=== PATIENT | male | born 1930 | race Caucasian/White ===

== ENCOUNTER 2018-11-18 05:35 | Emergency (ER) | payer MEDICARE ==
[~2018-11-18] VITALS: Ht 175.3 cm; Wt 76.8 kg
[~2018-11-18 05:35] MED LIST: ASPI81TA52 PO; COR3.125T PO; PANT40TA39 PO; POTA10TA15 PO; Prednisone PO; ROPI0.2534 PO; SIMV20TA5 PO; ZOLP5TAB8 PO
[2018-11-18] MEDS ORDERED: LEVOTHYROXINE PO (05:58)
[2018-11-18] MEDS ORDERED: AMIO200T61 PO (05:58)
[2018-11-18 07:42] LABS: BASOPHILS % (AUTO) 0.3 % (0-1); EOSINOPHILS % (AUTO) 0.2 % (0-6); HEMATOCRIT 40.5 % (42.0-52.0); HEMOGLOBIN 13.8 g/dl (14.0-17.9); LYMPHOCYTES # (AUTO) 0.7 X10'3 (1.1-4.8); LYMPHOCYTES % (AUTO) 7.3 % (21-51); MEAN CORPUSCULAR HEMOGLOBIN 33.3 PG (27.0-31.0); MEAN CORPUSCULAR HGB CONC 34.2 g/dL (33.0-36.5); MEAN CORPUSCULAR VOLUME 97.4 FL (78-98); MEAN PLATELET VOLUME 7.9 FL (7.4-10.4); MONOCYTES % (AUTO) 10.7 % (2-12); NEUTROPHILS # (AUTO) 7.5 X10'3 (1.8-7.7); NEUTROPHILS % (AUTO) 81.5 % (42-75); PLATELET COUNT 123 X10'3 (140-440); RED BLOOD COUNT 4.15 X10'6 (4.70-6.10); RED CELL DISTRIBUTION WIDTH 13.3 % (11.5-14.5); WHITE BLOOD COUNT 9.2 X10'3 (4.5-11.0)
[2018-11-18 07:56] LABS: ALANINE AMINOTRANSFERASE 22 U/L (12-78); ALBUMIN 3.6 G/DL (3.4-5.0); ALBUMIN/GLOBULIN RATIO 0.8 (1.1-1.5); ALKALINE PHOSPHATASE 58 IU/L (46-116); ANION GAP 8 (8-16); ASPARTATE AMINO TRANSFERASE 27 U/L (10-37); BILIRUBIN,TOTAL 0.9 MG/DL (0.1-1.0); BLOOD UREA NITROGEN 20 MG/DL (7-18); BUN/CREATININE RATIO 13.7 (5.4-32.0); CALCIUM 9.1 MG/DL (8.5-10.1); CHLORIDE 99 MMOL/L (99-107); CREATININE 1.46 MG/DL (0.60-1.10); GLUCOSE 115 MG/DL (70-104); POTASSIUM 4.4 MMOL/L (3.5-5.1); SODIUM 133 MMOL/L (135-145); TOTAL CARBON DIOXIDE 26.2 MMOL/L (24-32); TOTAL PROTEIN 7.9 G/DL (6.4-8.2); eGFR 45 ML/MIN
[2018-11-18 08:45] LABS: CLARITY,URINE CLEAR (Clear); COLOR,URINE YELLOW (Yellow); GLUCOSE, URINE NEGATIVE (Neg); KETONES,URINE NEGATIVE (Neg); LEUKOCYTE ESTERASE ,URINE NEGATIVE (Neg); NITRITES, URINE NEGATIVE (Neg); OCCULT BLOOD,URINE TRACE-INTACT (Neg); PH,URINE 7.5 (4.8-8.0); PROTEIN,URINE TRACE mg/dl (Neg)
[2018-11-18 08:47] LABS: UA COLLECTION TYPE CLN CATCH MIDSTREAM
[2018-11-18 08:50] LABS: BACTERIA,URINE NONE SEEN /HPF (Neg); MUCUS STRANDS NONE SEEN /LPF (Neg); SQUAMOUS EPITHELIAL CELL,UR NONE SEEN /LPF (FEW); WBC,URINE NONE SEEN /HPF (0-4)
[2018-11-18] MEDS ORDERED: gabapentin 100mg capsule PO ONE (09:05)
[2018-11-18 09:44] VITALS: BP 141/70
[2018-11-19] MEDS ORDERED: LORA0.5T PO (05:31)
== END 2018-11-18 09:45 | disposition home or self-care (01) ==
LOC: ER 05:36
DX: G25.81 Restless legs syndrome (principal); I25.10 Atherosclerotic heart disease of native coronary artery without angina pectoris; I11.0 Hypertensive heart disease with heart failure; I50.9 Heart failure, unspecified; K21.9 Gastro-esophageal reflux disease without esophagitis; Z95.1 Presence of aortocoronary bypass graft; Z95.0 Presence of cardiac pacemaker; Z90.49 Acquired absence of other specified parts of digestive tract; Z88.8 Allergy status to other drugs, medicaments and biological substances; Z88.6 Allergy status to analgesic agent
CPT/HCPCS: 36415; 71045; 80053; 81001; 84484; 85025; 93005; 99284

== ENCOUNTER 2018-11-19 02:58 | Emergency (ER) | payer MEDICARE ==
[~2018-11-19] VITALS: Ht 177.8 cm; Wt 76.8 kg
[~2018-11-19 02:58] MED LIST changes: +AMIO200T61 PO; +LEVOTHYROXINE PO; -PANT40TA39 PO; -POTA10TA15 PO; -Prednisone PO; -ZOLP5TAB8 PO
--- NOTE | 2018-11-19 03:59 | NUR ---
family just showed up. The patient is doing well. Gave him some water to drink.
[2018-11-19] MEDS ORDERED: LORazepam 0.5 MG tablet PO PRN (04:20)
--- NOTE | 2018-11-19 04:59 | NUR ---
adm him the ativan and he said "one pill? Whoopy." Informed pt that the medication is strong, that one is sufficient.
[2018-11-19 05:15] LABS: ANION GAP 8 (8-16); BLOOD UREA NITROGEN 20 MG/DL (7-18); BUN/CREATININE RATIO 13.6 (5.4-32.0); CALCIUM 8.5 MG/DL (8.5-10.1); CHLORIDE 96 MMOL/L (99-107); CREATININE 1.47 MG/DL (0.60-1.10); GLUCOSE 100 MG/DL (70-104); MAGNESIUM 1.6 MG/DL (1.5-2.4); PHOSPHORUS 2.9 MG/DL (2.3-4.5); POTASSIUM 3.9 MMOL/L (3.5-5.1); SODIUM 131 MMOL/L (135-145); TOTAL CARBON DIOXIDE 26.9 MMOL/L (24-32); eGFR 45 ML/MIN
[2018-11-19] MEDS ORDERED: LORA0.5T PO (05:31)
[2018-11-19 05:40] VITALS: BP 138/55
== END 2018-11-19 05:51 | disposition home or self-care (01) ==
LOC: ER 02:58
DX: M62.838 Other muscle spasm (principal); I25.10 Atherosclerotic heart disease of native coronary artery without angina pectoris; I50.9 Heart failure, unspecified; I11.0 Hypertensive heart disease with heart failure; K21.9 Gastro-esophageal reflux disease without esophagitis; Z88.8 Allergy status to other drugs, medicaments and biological substances; Z79.82 Long term (current) use of aspirin; Z79.899 Other long term (current) drug therapy; Z90.49 Acquired absence of other specified parts of digestive tract; Z95.0 Presence of cardiac pacemaker; Z95.1 Presence of aortocoronary bypass graft; Z87.448 Personal history of other diseases of urinary system
CPT/HCPCS: 36415; 80048; 82330; 83735; 84100; 99283

== ENCOUNTER 2018-12-02 15:32 | Inpatient (IN) | payer MEDICARE ==
[~2018-12-02] VITALS: Ht 185.4 cm; Wt 76.4 kg
[~2018-12-02 15:32] MED LIST changes: +LORA0.5T PO; +SIMV-42 PO; -SIMV20TA5 PO
[2018-12-02] MEDS ORDERED: normal saline 1000ML IV soln IVB ONE (17:05)
[2018-12-02 17:58] LABS: BASOPHILS # (AUTO) 0.1 X10'3 (0-0.2); BASOPHILS % (AUTO) 0.6 % (0-1); EOSINOPHILS % (AUTO) 0.3 % (0-6); HEMATOCRIT 34.2 % (42.0-52.0); HEMOGLOBIN 11.7 g/dl (14.0-17.9); LYMPHOCYTES % (AUTO) 9.9 % (21-51); MEAN CORPUSCULAR HEMOGLOBIN 33.2 PG (27.0-31.0); MEAN CORPUSCULAR HGB CONC 34.3 g/dL (33.0-36.5); MEAN CORPUSCULAR VOLUME 96.7 FL (78-98); MEAN PLATELET VOLUME 8.3 FL (7.4-10.4); MONOCYTES # (AUTO) 1.5 X10'3 (0-0.9); MONOCYTES % (AUTO) 14.7 % (2-12); NEUTROPHILS # (AUTO) 7.6 X10'3 (1.8-7.7); NEUTROPHILS % (AUTO) 74.5 % (42-75); PLATELET COUNT 260 X10'3 (140-440); RED BLOOD COUNT 3.54 X10'6 (4.70-6.10); RED CELL DISTRIBUTION WIDTH 13.5 % (11.5-14.5); WHITE BLOOD COUNT 10.1 X10'3 (4.5-11.0)
[2018-12-02 18:00] LABS: ALANINE AMINOTRANSFERASE 18 U/L (12-78); ALBUMIN 2.3 G/DL (3.4-5.0); ALBUMIN/GLOBULIN RATIO 0.5 (1.1-1.5); ALKALINE PHOSPHATASE 74 IU/L (46-116); ANION GAP 12 (8-16); ASPARTATE AMINO TRANSFERASE 22 U/L (10-37); BILIRUBIN,TOTAL 0.6 MG/DL (0.1-1.0); BLOOD UREA NITROGEN 20 MG/DL (7-18); BUN/CREATININE RATIO 14.9 (5.4-32.0); CALCIUM 8.5 MG/DL (8.5-10.1); CHLORIDE 97 MMOL/L (99-107); CREATININE 1.34 MG/DL (0.60-1.10); GLUCOSE 92 MG/DL (70-104); SODIUM 131 MMOL/L (135-145); TOTAL CARBON DIOXIDE 22.5 MMOL/L (24-32); TOTAL PROTEIN 7.2 G/DL (6.4-8.2); eGFR 50 ML/MIN
[2018-12-02 18:48] LABS: CLARITY,URINE CLEAR (Clear); COLOR,URINE YELLOW (Yellow); GLUCOSE, URINE NEGATIVE (Neg); KETONES,URINE TRACE mg/dl (Neg); LEUKOCYTE ESTERASE ,URINE NEGATIVE (Neg); NITRITES, URINE NEGATIVE (Neg); OCCULT BLOOD,URINE NEGATIVE (Neg); PROTEIN,URINE NEGATIVE (Neg); UROBILINOGEN,URINE >=8.0 E.U/dL (0.2-1.0)
[2018-12-02 19:01] LABS: UA COLLECTION TYPE URINAL
[2018-12-02] MEDS ORDERED: iohexol 300mg/ml 100ml inj. ONE (19:01)
[2018-12-02] MEDS: morphine 2 MG/ML inj. syringe IV PRN ×2 (19:01→19:22)
[2018-12-02] MEDS ORDERED: ROPI0.5T2 PO (19:29)
[2018-12-02] MEDS ORDERED: ESCI5TAB PO (19:29)
[2018-12-02] MEDS ORDERED: FLAX10007 PO (19:29)
--- NOTE | 2018-12-02 20:03 | NUR ---
DR ADDISON AT BEDSIDE.
[2018-12-02] MEDS ORDERED: heparin 10,000 units/1 ML INJ ONE (20:36)
[2018-12-02] MEDS ORDERED: fentaNYL /PF 50mcg/ml 5ml ampule ONE (20:43)
[2018-12-02] MEDS ORDERED: nitroPRUSSIDE in NS 100 ML IV ONE (20:49)
[2018-12-02] MEDS ORDERED: etomidate 2mg/ml inj. ONE (20:56)
[2018-12-02] MEDS ORDERED: LIDOcaine 2% (20mg/ml) 5ml vial ONE (20:56)
[2018-12-02] MEDS ORDERED: rocuronium 10mg/ml inj IV ONE (20:56)
[2018-12-02] MEDS ORDERED: phenylephrine 10mg/ml inj. ONE (20:56)
[2018-12-02] MEDS ORDERED: epiNEPHrine 1 mg/ml inj ONE (20:56)
[2018-12-02] MEDS ORDERED: ceFAZolin 1000mg inj ONE (21:50)
[2018-12-02 22:11] LABS: ABG BASE EXCESS -3.3 mmol/L (-2.0-3.0); ABG HCO3 19.9 mmol/L (22.0-26.0); ABG OXYGEN SATURATION 98.9 % (95-98); ABG PCO2 (T) 30.5 mmHg (35.0-45.0); ABG PH (T) 7.436 (7.350-7.450); ABG PO2 (T) 211.3 mmHg (83-108); FCOHb 0.3 % (0.5-1.5); FMetHb 0.2 % (0.3-1.12); FO2Hb 98.4 % (94-100); PATIENT TEMPERATURE 37.5; TOTAL HEMOGLOBIN 10.7 G/dl (14.0-17.9)
[2018-12-02] MEDS ORDERED: pancuronium br 1mg/ml inj IV ONE (23:01)
[2018-12-02] MEDS ORDERED: piperacillin/tazo 3.375gm/50 ML IV ONE (23:10)
[2018-12-03] VITALS (36 sets, daily range): BP systolic 84–144; BP diastolic 43–91
[2018-12-03] MEDS ORDERED: insulin regular, human vial - multi-dose ONE (00:10)
[2018-12-03] MEDS ORDERED: ceFAZolin 1000mg inj ONE (00:16)
[2018-12-03] MEDS ORDERED: ringers solution, lacted 1,000 ML IV SCH (00:51)
[2018-12-03] MEDS ORDERED: FENTANYL-0.9 % NACL/PF 100 ML IV PRN (00:51)
[2018-12-03] MEDS ORDERED: midazolam 100mg in NS 100ml 100 ML IV PRN ×2 (00:51→15:50)
[2018-12-03] MEDS ORDERED: morphine 4 MG/ML inj SYRINge IV PRN (00:55)
[2018-12-03] MEDS ORDERED: HYDROmorphone inj. 0.5 MG/0.5 ML DISP.SYRIN IV PRN (00:55)
[2018-12-03] MEDS ORDERED: ondansetron/PF 4mg/2ml inj IV PRN ×2 (00:55→02:00)
[2018-12-03 00:56] LABS: ABG BASE EXCESS -8.7 mmol/L (-2.0-3.0); ABG HCO3 16.8 mmol/L (22.0-26.0); ABG OXYGEN SATURATION 98.9 % (95-98); ABG PCO2 (T) 32.8 mmHg (35.0-45.0); ABG PO2 (T) 219.6 mmHg (83-108); FCOHb 0.2 % (0.5-1.5); FMetHb 0.2 % (0.3-1.12); FO2Hb 98.5 % (94-100); PATIENT TEMPERATURE 35.8; TOTAL HEMOGLOBIN 12.3 G/dl (14.0-17.9)
[2018-12-03] MEDS ORDERED: sodium bicarbonate (8.4%) inj. 1 MEQ/ML ML ONE ×2 (00:58→01:04)
[2018-12-03] MEDS ORDERED: phenylephrine inj 20 MG in normal saline 250ml IV soln 250 ML IV PRN (01:15)
[2018-12-03] MEDS ORDERED: nitroPRUSSIDE in NS 100 ML IV ONE (01:28)
[2018-12-03] MEDS ORDERED: heparin 1,000unit/ml 10ml vial 10 ML ONE (02:15)
[2018-12-03 02:21] LABS: ABG BASE EXCESS -4.6 mmol/L (-2.0-3.0); ABG HCO3 18.8 mmol/L (22.0-26.0); ABG OXYGEN SATURATION 99.2 % (95-98); ABG PCO2 (T) 29.2 mmHg (35.0-45.0); ABG PH (T) 7.426 (7.350-7.450); ABG PO2 (T) 240.2 mmHg (83-108); FCOHb 0.3 % (0.5-1.5); FMetHb 0.1 % (0.3-1.12); FO2Hb 98.8 % (94-100); MINUTE VOLUME 8 L/min; PATIENT TEMPERATURE 36.9; PEEP 5 cm H2O; RESPIRATORY RATE 12 b/min; RESPIRATORY RATE (OBSERVED) 12 b/min; TIDAL VOLUME 600 mL; TOTAL HEMOGLOBIN 11.3 G/dl (14.0-17.9)
[2018-12-03 02:38] LABS: PARTIAL THROMBOPLASTIN TIME 89 SECONDS (22-32)
[2018-12-03 02:50] LABS: ISTAT ANION GAP 14 (8-12); ISTAT BUN 15 mg/dL (6-19); ISTAT CL 102 mmol/L (99-107); ISTAT CREATININE 0.8 mg/dL (0.8-1.3); ISTAT GLUCOSE 184 mg/dL (70-104); ISTAT HGB 10.9 g/dl (14.0-18.0); ISTAT Hct 32 %PCV (42-52); ISTAT IONIZED CALCIUM 0.98 mmol/L (1.03-1.32); ISTAT K 4.2 mmol/L (3.5-5.1); ISTAT NA 134 mmol/L (135-145); ISTAT TOTAL CO2 18 mmol/L (24-32); ISTAT eGFR > 90 ML/MIN; POC BUN/CREATININE RATIO 18.8 (5.4-32.0)
[2018-12-03] MEDS ORDERED: morphine 4 MG/ML inj SYRINge IV ONE ×2 (03:00)
[2018-12-03] MEDS ORDERED: morphine 4 MG/ML inj SYRINge ONE (03:04)
[2018-12-03] MEDS: vancomycin/NS 1 GM ADD-VANTAGE 250 ML IV SCH (03:26)
[2018-12-03] MEDS: normal saline 1000ml 1,000 ML IV SCH ×2 (03:27→15:56)
[2018-12-03 03:45] LABS: BASOPHILS # (AUTO) 0.1 X10'3 (0-0.2); BASOPHILS % (AUTO) 0.6 % (0-1); EOSINOPHILS % (AUTO) 0.1 % (0-6); HEMATOCRIT 31.5 % (42.0-52.0); HEMOGLOBIN 10.7 g/dl (14.0-17.9); LYMPHOCYTES % (AUTO) 6.5 % (21-51); MEAN CORPUSCULAR HEMOGLOBIN 31.2 PG (27.0-31.0); MEAN CORPUSCULAR VOLUME 91.8 FL (78-98); MEAN PLATELET VOLUME 8.3 FL (7.4-10.4); MONOCYTES # (AUTO) 1.2 X10'3 (0-0.9); MONOCYTES % (AUTO) 7.5 % (2-12); NEUTROPHILS # (AUTO) 13.2 X10'3 (1.8-7.7); NEUTROPHILS % (AUTO) 85.3 % (42-75); PLATELET COUNT 212 X10'3 (140-440); RED BLOOD COUNT 3.43 X10'6 (4.70-6.10); RED CELL DISTRIBUTION WIDTH 15.7 % (11.5-14.5); WHITE BLOOD COUNT 15.4 X10'3 (4.5-11.0)
[2018-12-03 03:55] LABS: ALANINE AMINOTRANSFERASE 11 U/L (12-78); ALBUMIN 1.6 G/DL (3.4-5.0); ALBUMIN/GLOBULIN RATIO 0.5 (1.1-1.5); ALKALINE PHOSPHATASE 47 IU/L (46-116); ANION GAP 11 (8-16); ASPARTATE AMINO TRANSFERASE 15 U/L (10-37); BILIRUBIN,TOTAL 1.1 MG/DL (0.1-1.0); BLOOD UREA NITROGEN 15 MG/DL (7-18); CHLORIDE 109 MMOL/L (99-107); GLUCOSE 112 MG/DL (70-104); MAGNESIUM 1.3 MG/DL (1.5-2.4); PHOSPHORUS 2.2 MG/DL (2.3-4.5); POTASSIUM 3.2 MMOL/L (3.5-5.1); SODIUM 138 MMOL/L (135-145); TOTAL CARBON DIOXIDE 18.4 MMOL/L (24-32); TOTAL PROTEIN 4.7 G/DL (6.4-8.2); eGFR 70 ML/MIN
[2018-12-03 03:59] LABS: CALCIUM 5.9 MG/DL (8.5-10.1)
[2018-12-03 05:10] LABS: ABG BASE EXCESS -6.7 mmol/L (-2.0-3.0); ABG HCO3 17.7 mmol/L (22.0-26.0); ABG OXYGEN SATURATION 98.6 % (95-98); ABG PCO2 (T) 30.3 mmHg (35.0-45.0); ABG PH (T) 7.379 (7.350-7.450); ABG PO2 (T) 147.5 mmHg (83-108); FCOHb 0.3 % (0.5-1.5); FMetHb 0.2 % (0.3-1.12); FO2Hb 98.1 % (94-100); MINUTE VOLUME 7 L/min; PATIENT TEMPERATURE 35.8; PEEP 5 cm H2O; RESPIRATORY RATE 12 b/min; RESPIRATORY RATE (OBSERVED) 12 b/min; TIDAL VOLUME 500 mL; TOTAL HEMOGLOBIN 11.4 G/dl (14.0-17.9)
[2018-12-03] MEDS: magnesium 4gm in 100ml NS 100 ML IV PRN (05:24)
[2018-12-03] MEDS: potassium Cl 20mEq/100mL bag 100 ML IV PRN ×2 (05:24→09:02)
[2018-12-03] MEDS: nitroPRUSSIDE in NS 100 ML IV PRN ×2 (05:25→12:08)
--- NOTE | 2018-12-03 06:09 | NUR ---
END OF SHIFT SUMMARY. RECEIVED PATIENT FROM THE OR ACCOMPANIED BY DR MCINTOSH AND LATER BY DR OCONNOR. PATIENTS TEMP WAS NOT IMPROVING SO A BARE HUGGER WAS ADDED. tEMP IS SLOWLY INCREASING. ORDER TO KEEP SBP 100-120 MMGH USING NIPRIDE GTT. PATIENT BLOOD PRESSURE HAS BEEN EXTREMELY LABILE WELL A POSITIONAL A-LINE. CUFF PRESSURE WAS READING APPROXIMATELY 10 MMHG LESS THAN THE PROPER WORKING GABBY - CURRENTLY THE GABBY IS QUITE POSITIONAL. NIPRIDE IS PAUSED TO SEE THE EFFECTS. NIBP CUFF PRESSURE IS 117/59 (73). WILL CONTINUE TO MONITOR. PATIENT IS NOW SEDATED ON VERSED AND FENTANYL GTT PER ORDER. NO MOVEMENT NOTED SPONTANEOUSLY. CURRENTLY I AM NOT TRYING TO WAKE PATIENT DO TO BLOOD PRESSURE PARAMETERS. PAK IN PLACE, U/O HAS BEEN CLEAR AND QUANTITY SUFFICIENT, SMALL AMOUNT OF BLOOD AT [facility] AND IN GROIN UPON ARRIIVAL FROM OR. NO FAMILY WAS WITH PATIENT ON ADMIT OR EVEN UNTIL NOW. GLASSES WERE THE ONLY BELONGING THAT CAME WITH PATIENT. NIPRIDE HAS BEEN MINUTE BY MINUTE TITRATING UP/DOWN TO REACH GOAL BP 100-120 MMHG.
--- NOTE | 2018-12-03 06:50 | NUR ---
Received patient report at bedside from off going RN.
--- NOTE | 2018-12-03 07:45 | NUR ---
Pt.'s temperature 37.0, bear hugger removed. Nipride remains off.
[2018-12-03] MEDS ORDERED: vancomycin/NS 1 GM ADD-VANTAGE 250 ML IV SCH (08:00)
[2018-12-03] MEDS: ceFAZolin 1GM/D5W- ADD-VANTAGE 50 ML IV SCH ×2 (08:51)
[2018-12-03] MEDS: mineral oil/petrolatum ophthal oint EACHEYE SCH ×3 (08:51→20:30)
[2018-12-03] MEDS: magnesium 2GM in 50ml NS 50 ML IV PRN (09:04)
--- NOTE | 2018-12-03 10:53 | NUR ---
Nipride turned on, BP 134/64. Pt. waking up, not following commands.
[2018-12-03] MEDS ORDERED: racepinephrine 11.25mg/0.5ml nebule NEB PRN (11:00)
[2018-12-03] MEDS ORDERED: CADD PCA waste documentation MC PRN (11:00)
[2018-12-03] MEDS ORDERED: ipratropium/albuterol 3ml nebule NEB PRN (11:00)
[2018-12-03] MEDS ORDERED: naloxone 0.4 mg/ml inj IV PRN (11:00)
[2018-12-03] MEDS: HYDROmorphone/NS 1 mg/ml CADD 50 ML IV SCH ×3 (13:00→15:00)
[2018-12-03 13:30] LABS: BASOPHILS # (AUTO) 0.1 X10'3 (0-0.2); BASOPHILS % (AUTO) 0.4 % (0-1); EOSINOPHILS % (AUTO) 0.1 % (0-6); HEMATOCRIT 35.6 % (42.0-52.0); LYMPHOCYTES # (AUTO) 0.7 X10'3 (1.1-4.8); LYMPHOCYTES % (AUTO) 4.5 % (21-51); MEAN CORPUSCULAR HEMOGLOBIN 31.2 PG (27.0-31.0); MEAN CORPUSCULAR HGB CONC 33.7 g/dL (33.0-36.5); MEAN CORPUSCULAR VOLUME 92.6 FL (78-98); MEAN PLATELET VOLUME 7.4 FL (7.4-10.4); MONOCYTES # (AUTO) 1.2 X10'3 (0-0.9); MONOCYTES % (AUTO) 7.3 % (2-12); NEUTROPHILS # (AUTO) 14.6 X10'3 (1.8-7.7); NEUTROPHILS % (AUTO) 87.7 % (42-75); PLATELET COUNT 226 X10'3 (140-440); RED BLOOD COUNT 3.84 X10'6 (4.70-6.10); RED CELL DISTRIBUTION WIDTH 16.3 % (11.5-14.5); WHITE BLOOD COUNT 16.7 X10'3 (4.5-11.0)
--- NOTE | 2018-12-03 14:12 | NUR ---
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 Receiving electrolytes per protocol. OG in place; TF recs below for pt needs if prolonged intubation. Will need high protein ed once stable prior to d/c for wound healing. Will continue to monitor. Rec: 1. IF OGTF; Vital High Protein at 80ml/hr goal 2. IF TF; water flush 100ml Q6 3. IF TF; prealbumin Q /; daily wts 4. high protein ed once stable post-op 5. Once PO consider opioid antagonist post-op per surgeon approval to promote bowel regularity 6. routine bowel care once PO Addendum: 12/03/18 at [address] Amended: Links added.
[2018-12-03] MEDS: FENTANYL-0.9 % NACL/PF 100 ML IV PRN (17:05)
[2018-12-03] MEDS ORDERED: acetaminophen 325mg/10.15ml oral unit dose solution PO PRN (17:30)
--- NOTE | 2018-12-03 18:30 | NUR ---
Patient in room ICU 2042. I have received report from PILY Tamez and had the opportunity to ask questions and assume patient care.
[2018-12-03] MEDS: lactobacillus rhamnosus 10,000 MMU CELLS/CAPSULE PO SCH (20:29)
[2018-12-03] MEDS: carvedilol 6.25mg tablet PO SCH (20:29)
[2018-12-03] MEDS: ipratropium/albuterol 3ml nebule NEB SCH (20:54)
[2018-12-03] MEDS ORDERED: ROPINIRole 0.25mg tablet PO SCH (21:00)
[2018-12-03] MEDS ORDERED: sevoflurane 250ml liquid IH ONE (21:01)
[2018-12-03] MEDS ORDERED: DOPamine/D5W 400mg/250ml bag IV ONE (21:01)
[2018-12-04] VITALS (24 sets, daily range): BP systolic 91–127; BP diastolic 43–69
[2018-12-04] MEDS ORDERED: mineral oil/petrolatum ophthal oint EACHEYE SCH (02:00)
[2018-12-04] MEDS: mineral oil/petrolatum ophthal oint EACHEYE SCH ×4 (02:18→20:50)
[2018-12-04] MEDS: normal saline 1000ml 1,000 ML IV SCH ×3 (02:18→18:46)
[2018-12-04 02:51] LABS: BASOPHILS # (AUTO) 0.1 X10'3 (0-0.2); BASOPHILS % (AUTO) 0.4 % (0-1); EOSINOPHILS % (AUTO) 0.3 % (0-6); HEMATOCRIT 33.3 % (42.0-52.0); HEMOGLOBIN 11.1 g/dl (14.0-17.9); LYMPHOCYTES # (AUTO) 0.5 X10'3 (1.1-4.8); LYMPHOCYTES % (AUTO) 2.9 % (21-51); MEAN CORPUSCULAR HEMOGLOBIN 31.2 PG (27.0-31.0); MEAN CORPUSCULAR HGB CONC 33.3 g/dL (33.0-36.5); MEAN CORPUSCULAR VOLUME 93.7 FL (78-98); MEAN PLATELET VOLUME 7.4 FL (7.4-10.4); MONOCYTES % (AUTO) 6.2 % (2-12); NEUTROPHILS # (AUTO) 14.9 X10'3 (1.8-7.7); NEUTROPHILS % (AUTO) 90.2 % (42-75); PLATELET COUNT 189 X10'3 (140-440); RED BLOOD COUNT 3.55 X10'6 (4.70-6.10); RED CELL DISTRIBUTION WIDTH 16.2 % (11.5-14.5); WHITE BLOOD COUNT 16.5 X10'3 (4.5-11.0)
[2018-12-04] MEDS: vancomycin/NS 1 GM ADD-VANTAGE 250 ML IV SCH (02:57)
[2018-12-04 03:10] LABS: ALANINE AMINOTRANSFERASE 14 U/L (12-78); ALBUMIN 1.6 G/DL (3.4-5.0); ALBUMIN/GLOBULIN RATIO 0.4 (1.1-1.5); ALKALINE PHOSPHATASE 54 IU/L (46-116); ANION GAP 10 (8-16); ASPARTATE AMINO TRANSFERASE 23 U/L (10-37); BILIRUBIN,TOTAL 0.6 MG/DL (0.1-1.0); BLOOD UREA NITROGEN 12 MG/DL (7-18); BUN/CREATININE RATIO 10.8 (5.4-32.0); CALCIUM 6.8 MG/DL (8.5-10.1); CHLORIDE 108 MMOL/L (99-107); CREATININE 1.11 MG/DL (0.60-1.10); GLUCOSE 76 MG/DL (70-104); POTASSIUM 4.3 MMOL/L (3.5-5.1); SODIUM 138 MMOL/L (135-145); TOTAL CARBON DIOXIDE 20.3 MMOL/L (24-32); TOTAL PROTEIN 5.3 G/DL (6.4-8.2); eGFR 62 ML/MIN
[2018-12-04] MEDS: ipratropium/albuterol 3ml nebule NEB SCH ×4 (03:14→20:24)
[2018-12-04 03:29] LABS: MAGNESIUM 2.6 MG/DL (1.5-2.4)
[2018-12-04 03:30] LABS: ABG BASE EXCESS -7.1 mmol/L (-2.0-3.0); ABG HCO3 17.7 mmol/L (22.0-26.0); ABG OXYGEN SATURATION 94.9 % (95-98); ABG PCO2 (T) 34.7 mmHg (35.0-45.0); ABG PH (T) 7.329 (7.350-7.450); ABG PO2 (T) 80.2 mmHg (83-108); ALLEN'S TEST Positive; FCOHb 0.5 % (0.5-1.5); FMetHb 0.2 % (0.3-1.12); FO2Hb 94.2 % (94-100); MINUTE VOLUME 9 L/min; PATIENT TEMPERATURE 37.9; PEEP 5 cm H2O; RESPIRATORY RATE 10 b/min; RESPIRATORY RATE (OBSERVED) 18 b/min; TIDAL VOLUME 450 mL; TOTAL HEMOGLOBIN 12.4 G/dl (14.0-17.9)
[2018-12-04] MEDS: FENTANYL-0.9 % NACL/PF 100 ML IV PRN (03:31)
[2018-12-04 05:21] LABS: ISTAT HGB 8.5 g/dl (14.0-18.0); ISTAT IONIZED CALCIUM 1.1 mmol/L (1.03-1.32); ISTAT K 3.5 mmol/L (3.5-5.1)
--- NOTE | 2018-12-04 06:21 | NUR ---
Problems reprioritized. Patient report given, questions answered & plan of care reviewed with PILY Tamez.
[2018-12-04] MEDS ORDERED: levoTHYROXINE 75mcg tablet PO SCH (07:00)
[2018-12-04] MEDS ORDERED: ESCITALOPRAM OXALATE 5 MG TABLET PO SCH (08:00)
[2018-12-04] MEDS ORDERED: aspirin 81mg tablet.DR PO SCH (08:00)
[2018-12-04] MEDS: lactobacillus rhamnosus 10,000 MMU CELLS/CAPSULE PO SCH (08:00)
[2018-12-04] MEDS: carvedilol 6.25mg tablet PO SCH (08:00)
[2018-12-04] MEDS ORDERED: LEVOTHYROXINE 75 MCG PO SCH (08:00)
[2018-12-04] MEDS ORDERED: FLAXSEED 1000 MG PO SCH (08:00)
[2018-12-04] MEDS ORDERED: amiodarone 200mg tablet PO SCH (08:00)
[2018-12-04] MEDS ORDERED: dextrose 50%-water 50ml dispensing syringe IV PRN ×2 (10:45)
[2018-12-04] MEDS ORDERED: glucagon, human recombinant 1mg kit SUBCUT PRN (10:45)
[2018-12-04] MEDS ORDERED: dextrose ORAL solution 15 GM/59 ML bottle PO PRN ×2 (10:45)
[2018-12-04] MEDS: dextrose 5%-normal saline 1,000 ML IV SCH ×2 (10:58→18:35)
[2018-12-04] MEDS ORDERED: acetaminophen 325mg/10.15ml oral unit dose solution OGT PRN (12:27)
[2018-12-04] MEDS ORDERED: dextrose ORAL solution 15 GM/59 ML bottle OGT PRN ×2 (12:29→12:45)
[2018-12-04] MEDS ORDERED: NORepinephrine 8mg/ 250ml NS 250 ML IV ONE (14:05)
[2018-12-04] MEDS ORDERED: acetylcysteine 200 MG/ml 4ml vial INH ONE (14:45)
[2018-12-04 14:47] LABS: PLATELET COUNT 229 X10'3 (140-440)
[2018-12-04 15:02] LABS: D-DIMER 10.38 MG/L FEU (0-0.50); PARTIAL THROMBOPLASTIN TIME 27 SECONDS (22-32)
--- NOTE | 2018-12-04 17:14 | NUR ---
Patient's blood sugar at 1040 was 61, received orders from for D5NS at 100 ml/hr. Re-checked blood sugar at 1117 and it was 72.
[2018-12-04] MEDS ORDERED: albumin (human) 25% 100 ML IV solution IV ONE ×2 (17:40→19:10)
--- NOTE | 2018-12-04 18:45 | NUR ---
Dr Rosa at bedside, requesting an additional two bottles of albumin to be given and to given him a call if pressures do not improve. Shelley requesting that versed be turned off and left off. If patient wakes up propofol is to be used for sedation in place of versed. CBC ordered as well. Will send lab and give albumin and update him on results.
[2018-12-04 19:29] LABS: BASOPHILS # (AUTO) 0.1 X10'3 (0-0.2); BASOPHILS % (AUTO) 0.3 % (0-1); EOSINOPHILS % (AUTO) 0.1 % (0-6); HEMATOCRIT 26.8 % (42.0-52.0); HEMOGLOBIN 8.8 g/dl (14.0-17.9); LYMPHOCYTES # (AUTO) 0.5 X10'3 (1.1-4.8); LYMPHOCYTES % (AUTO) 2.6 % (21-51); MEAN CORPUSCULAR HEMOGLOBIN 31.1 PG (27.0-31.0); MEAN CORPUSCULAR HGB CONC 32.9 g/dL (33.0-36.5); MEAN CORPUSCULAR VOLUME 94.4 FL (78-98); MEAN PLATELET VOLUME 7.6 FL (7.4-10.4); MONOCYTES # (AUTO) 0.8 X10'3 (0-0.9); MONOCYTES % (AUTO) 4.8 % (2-12); NEUTROPHILS # (AUTO) 15.9 X10'3 (1.8-7.7); NEUTROPHILS % (AUTO) 92.2 % (42-75); PLATELET COUNT 156 X10'3 (140-440); RED BLOOD COUNT 2.84 X10'6 (4.70-6.10); RED CELL DISTRIBUTION WIDTH 16.1 % (11.5-14.5); WHITE BLOOD COUNT 17.3 X10'3 (4.5-11.0)
[2018-12-04] MEDS: carvedilol 6.25mg tablet OGT SCH (20:00)
[2018-12-04] MEDS: lactobacillus rhamnosus 10,000 MMU CELLS/CAPSULE OGT SCH (20:49)
[2018-12-04] MEDS: ROPINIRole 0.25mg tablet OGT SCH (20:49)
--- NOTE | 2018-12-04 21:47 | NUR ---
Spoke to Dr. Rosa to update him on patient's blood pressure. After giving him two 25% albumin bottles, patient's blood pressure still remains the same, map remaining below 60. MD aware of cvp of 15 and HR 70 paced. MD ordered to have Levophed started at 5mcg at this time. Will start and continue to monitor. MD also made aware of patient's cbc results, h/h dropping from 11.1/33.33 to 8.8/26.8. No new orders regarding this at this time, will continue to monitor.
[2018-12-04] MEDS ORDERED: NORepinephrine 8mg/ 250ml NS 250 ML IV SCH (21:50)
[2018-12-05] VITALS (24 sets, daily range): BP systolic 92–138; BP diastolic 42–64
[2018-12-05] MEDS: VANCOmycin 1250MG/NS 250ml Bag 250 ML IV SCH (02:00)
[2018-12-05] MEDS: mineral oil/petrolatum ophthal oint EACHEYE SCH ×4 (02:00→20:41)
[2018-12-05 02:46] LABS: BASOPHILS # (AUTO) 0.2 X10'3 (0-0.2); BASOPHILS % (AUTO) 0.9 % (0-1); EOSINOPHILS % (AUTO) 0.2 % (0-6); HEMATOCRIT 26.8 % (42.0-52.0); LYMPHOCYTES # (AUTO) 0.6 X10'3 (1.1-4.8); LYMPHOCYTES % (AUTO) 3.7 % (21-51); MEAN CORPUSCULAR HEMOGLOBIN 31.9 PG (27.0-31.0); MEAN CORPUSCULAR HGB CONC 33.8 g/dL (33.0-36.5); MEAN CORPUSCULAR VOLUME 94.6 FL (78-98); MEAN PLATELET VOLUME 7.9 FL (7.4-10.4); MONOCYTES # (AUTO) 0.7 X10'3 (0-0.9); MONOCYTES % (AUTO) 4.3 % (2-12); NEUTROPHILS # (AUTO) 15.3 X10'3 (1.8-7.7); NEUTROPHILS % (AUTO) 90.9 % (42-75); PLATELET COUNT 157 X10'3 (140-440); RED BLOOD COUNT 2.83 X10'6 (4.70-6.10); WHITE BLOOD COUNT 16.9 X10'3 (4.5-11.0)
[2018-12-05] MEDS: ipratropium/albuterol 3ml nebule NEB SCH ×4 (02:52→20:50)
[2018-12-05 02:57] LABS: ALANINE AMINOTRANSFERASE 14 U/L (12-78); ALBUMIN 2.7 G/DL (3.4-5.0); ALBUMIN/GLOBULIN RATIO 0.9 (1.1-1.5); ALKALINE PHOSPHATASE 51 IU/L (46-116); ANION GAP 7 (8-16); BILIRUBIN,TOTAL 0.9 MG/DL (0.1-1.0); BLOOD UREA NITROGEN 14 MG/DL (7-18); BUN/CREATININE RATIO 12.7 (5.4-32.0); CALCIUM 6.9 MG/DL (8.5-10.1); CHLORIDE 109 MMOL/L (99-107); GLUCOSE 165 MG/DL (70-104); SODIUM 138 MMOL/L (135-145); TOTAL CARBON DIOXIDE 22.3 MMOL/L (24-32); TOTAL PROTEIN 5.7 G/DL (6.4-8.2); eGFR 63 ML/MIN
[2018-12-05 02:59] LABS: ASPARTATE AMINO TRANSFERASE 23 U/L (10-37); POTASSIUM 4.3 MMOL/L (3.5-5.1)
[2018-12-05 03:06] LABS: ABG BASE EXCESS -5.8 mmol/L (-2.0-3.0); ABG HCO3 19.4 mmol/L (22.0-26.0); ABG OXYGEN SATURATION 95.4 % (95-98); ABG PCO2 (T) 35.9 mmHg (35.0-45.0); ABG PH (T) 7.348 (7.350-7.450); ABG PO2 (T) 74.2 mmHg (83-108); ALLEN'S TEST Positive; FCOHb 0.3 % (0.5-1.5); FO2Hb 95.1 % (94-100); MINUTE VOLUME 6 L/min; PATIENT TEMPERATURE 36.3; PEEP 5 cm H2O; RESPIRATORY RATE 10 b/min; RESPIRATORY RATE (OBSERVED) 14 b/min; TIDAL VOLUME 450 mL; TOTAL HEMOGLOBIN 9.8 G/dl (14.0-17.9)
[2018-12-05] MEDS: normal saline 1000ml 1,000 ML IV SCH (04:46)
[2018-12-05] MEDS: dextrose 5%-normal saline 1,000 ML IV SCH (06:13)
--- NOTE | 2018-12-05 06:23 | NUR ---
Problems reprioritized. Patient report given, questions answered & plan of care reviewed with PILY Zhao.
--- NOTE | 2018-12-05 06:25 | NUR ---
Patient in room ICU 2042. I have received report from PILY Etienne and had the opportunity to ask questions and assume patient care.
[2018-12-05] MEDS ORDERED: propofol 1000mg/100ml bottle 100 ML IV PRN (06:28)
[2018-12-05] MEDS: levoTHYROXINE 75mcg tablet OGT SCH (06:58)
[2018-12-05] MEDS: aspirin 81mg tab.chew OGT SCH (07:43)
[2018-12-05] MEDS: amiodarone 200mg tablet OGT SCH (07:43)
[2018-12-05] MEDS: lactobacillus rhamnosus 10,000 MMU CELLS/CAPSULE OGT SCH ×2 (07:43→20:41)
[2018-12-05] MEDS: ESCITALOPRAM OXALATE 5 MG TABLET OGT SCH (07:45)
--- NOTE | 2018-12-05 08:35 | NUR ---
Received call from Radiologist and was informed that the PA line tip was in right lung and that there appeared to be hemorrhaging in right lung base. Reviewed charting with LINA Ness. Previous PA length measurement charted at 52 cm length now approximately 63 cm. Call was made to Dr. Vázquez and Radiologist findings were reported. Dr. Vázquez stated that he is in route to unit.
[2018-12-05] MEDS: carvedilol 6.25mg tablet OGT SCH ×2 (08:41→20:41)
--- NOTE | 2018-12-05 09:09 | NUR ---
@0900 Dr Vázquez in room. He stated he had seen the xrays and had seen the migration of the PA catheter. Notified Dr Vázquez of urine output throughout the night being low and some current labs including current hgb, and about new distention of abdomen surrounding incisional dressing. Dr Vázquez assessed pt and palpated abdomen.
[2018-12-05 10:16] LABS: PLATELET COUNT 130 X10'3 (140-440)
[2018-12-05 10:32] LABS: PARTIAL THROMBOPLASTIN TIME 33 SECONDS (22-32)
[2018-12-05] MEDS: FENTANYL-0.9 % NACL/PF 100 ML IV PRN (13:15)
--- NOTE | 2018-12-05 14:02 | NUR ---
@1210 Dr Rosa in room, retracted PA catheter and requested stat CXR. CXR performed and Dr Rosa read it at bedside. Dr Rosa then dc PA cath after no bleeding present. Dr Rosa stated to notify him immediately if any bleeding present. Stated that it has only been 2 days since surgery and trickle tube feeding would only pose risk for aspiration at this time. notified that urine output still low. Addendum: 12/05/18 at 1518 by Freddie Moses RN Dr Rosa notified also at this time about increased swelling in abdomen around surgical incision. Dr Rosa assessed pt and palpated abdomen and groin.
[2018-12-05] MEDS ORDERED: furosemide 40mg/4ml inj IV ONE (16:10)
--- NOTE | 2018-12-05 18:25 | NUR ---
Patient in room ICU 2042. I have received report from Moshe NASCIMENTO, and had the opportunity to ask questions and assume patient care.
--- NOTE | 2018-12-05 19:30 | NUR ---
PT is intubated and mechanically vented. Tolerating settings well, O2 sat >98%. PT is sedated with Propofol and Fentanyl, tolerating well at low doses, resting comfortably. No s/s of distress noted at this time. VSS. Drsg to Midline ABD is intact with drainage noted and marked. Cervantes in place draining to gravity. Bed is locked and low. Bilat soft wrist restraints in place and secure. Will continue to monitor.
[2018-12-05] MEDS: ROPINIRole 0.25mg tablet OGT SCH (20:41)
--- NOTE | 2018-12-05 21:20 | NUR ---
ETT HIGH IN XRAY, ADVANCED TO 25 FROM 24 AND STRAIGHTENED ETT IN MOUTH, TUBE WAS ARCHING HIGH OR COILING, ONCE TUBE STRAIGHTENED AND PLACED AT 25 IT LOOKED ACCEPTABLE, WILL ADVANCE FURTHER AT RADIOLOGIST OR SORTER PRICER REQUEST, BILATERAL BREATH SOUNDS HEARD AFTER ADVANCED.
--- NOTE | 2018-12-05 23:00 | NUR ---
PT resting with no s/s of distress noted at this time. VSS. Bed is locked and low. Bilat soft wrist restraints in place and secure. Will continue to monitor.
[2018-12-06] VITALS (24 sets, daily range): BP systolic 99–159; BP diastolic 48–78
[2018-12-06] MEDS: VANCOmycin 1250MG/NS 250ml Bag 250 ML IV SCH (01:56)
[2018-12-06] MEDS: mineral oil/petrolatum ophthal oint EACHEYE SCH ×4 (01:56→19:35)
[2018-12-06 02:38] LABS: BASOPHILS % (AUTO) 0.4 % (0-1); EOSINOPHILS # (AUTO) 0.1 X10'3 (0-0.9); EOSINOPHILS % (AUTO) 0.8 % (0-6); HEMATOCRIT 26.1 % (42.0-52.0); HEMOGLOBIN 8.8 g/dl (14.0-17.9); LYMPHOCYTES # (AUTO) 0.5 X10'3 (1.1-4.8); LYMPHOCYTES % (AUTO) 4.7 % (21-51); MEAN CORPUSCULAR HEMOGLOBIN 31.5 PG (27.0-31.0); MEAN CORPUSCULAR HGB CONC 33.5 g/dL (33.0-36.5); MEAN CORPUSCULAR VOLUME 93.9 FL (78-98); MEAN PLATELET VOLUME 7.7 FL (7.4-10.4); MONOCYTES # (AUTO) 0.5 X10'3 (0-0.9); MONOCYTES % (AUTO) 4.8 % (2-12); NEUTROPHILS # (AUTO) 8.7 X10'3 (1.8-7.7); NEUTROPHILS % (AUTO) 89.3 % (42-75); PLATELET COUNT 135 X10'3 (140-440); RED BLOOD COUNT 2.78 X10'6 (4.70-6.10); RED CELL DISTRIBUTION WIDTH 15.7 % (11.5-14.5); WHITE BLOOD COUNT 9.7 X10'3 (4.5-11.0)
[2018-12-06] MEDS: ipratropium/albuterol 3ml nebule NEB SCH ×4 (02:39→20:10)
[2018-12-06 02:51] LABS: ABG BASE EXCESS -3.7 mmol/L (-2.0-3.0); ABG HCO3 20.9 mmol/L (22.0-26.0); ABG OXYGEN SATURATION 96.6 % (95-98); ABG PCO2 (T) 36.6 mmHg (35.0-45.0); ABG PH (T) 7.377 (7.350-7.450); ABG PO2 (T) 92.3 mmHg (83-108); ALLEN'S TEST Positive; FCOHb 0.3 % (0.5-1.5); FO2Hb 96.3 % (94-100); MINUTE VOLUME 6 L/min; PATIENT TEMPERATURE 37.3; PEEP 5 cm H2O; RESPIRATORY RATE 10 b/min; RESPIRATORY RATE (OBSERVED) 12 b/min; TIDAL VOLUME 450 mL; TOTAL HEMOGLOBIN 10.1 G/dl (14.0-17.9)
[2018-12-06 02:58] LABS: ALANINE AMINOTRANSFERASE 14 U/L (12-78); ALBUMIN 2.3 G/DL (3.4-5.0); ALBUMIN/GLOBULIN RATIO 0.7 (1.1-1.5); ALKALINE PHOSPHATASE 52 IU/L (46-116); ANION GAP 8 (8-16); ASPARTATE AMINO TRANSFERASE 20 U/L (10-37); BILIRUBIN,TOTAL 0.7 MG/DL (0.1-1.0); BLOOD UREA NITROGEN 15 MG/DL (7-18); BUN/CREATININE RATIO 12.7 (5.4-32.0); CALCIUM 7.4 MG/DL (8.5-10.1); CHLORIDE 109 MMOL/L (99-107); CREATININE 1.18 MG/DL (0.60-1.10); GLUCOSE 101 MG/DL (70-104); PHOSPHORUS 2.6 MG/DL (2.3-4.5); POTASSIUM 3.6 MMOL/L (3.5-5.1); SODIUM 140 MMOL/L (135-145); TOTAL CARBON DIOXIDE 23.3 MMOL/L (24-32); TOTAL PROTEIN 5.6 G/DL (6.4-8.2); TRIGLYCERIDES 81 MG/DL (20-135); eGFR 58 ML/MIN
--- NOTE | 2018-12-06 03:00 | NUR ---
PT continues to rest with no s/s of distress noted at this time. VSS. Bilat soft restraints remain in place and secure. Will continue to monitor.
--- NOTE | 2018-12-06 06:00 | NUR ---
Sedation titrated down in attempts to get PT to wake up in hopes of obtaining weaning parameters this AM. Will continue to monitor
--- NOTE | 2018-12-06 06:43 | NUR ---
Problems reprioritized. Patient report given, questions answered & plan of care reviewed with Anastasiia NASCIMENTO.
--- NOTE | 2018-12-06 06:48 | NUR ---
Patient in room ICU 2042. I have received report from PILY Sal and had the opportunity to ask questions and assume patient care.
[2018-12-06] MEDS: aspirin 81mg tab.chew OGT SCH (07:27)
[2018-12-06] MEDS: pantoprazole 40 MG vial IV SCH (07:27)
[2018-12-06] MEDS: amiodarone 200mg tablet OGT SCH (07:27)
[2018-12-06] MEDS: ESCITALOPRAM OXALATE 5 MG TABLET OGT SCH (07:27)
[2018-12-06] MEDS: lactobacillus rhamnosus 10,000 MMU CELLS/CAPSULE OGT SCH ×2 (07:27→19:35)
[2018-12-06] MEDS: levoTHYROXINE 75mcg tablet OGT SCH (07:27)
[2018-12-06] MEDS: carvedilol 6.25mg tablet OGT SCH ×3 (07:28→19:35)
[2018-12-06] MEDS: dexmedetomidin/NS 400mcg/100ml 100 ML IV SCH ×2 (12:50→20:31)
--- NOTE | 2018-12-06 15:00 | NUR ---
Reassessment: Patient NPO day 4, per bedside RN attempts for weaning today and if extubated hopeful diet advancement. If unable to extubated patient would benefit from nutrition support to meet nutrition needs s/p surgery and on vent. Will continue to follow. 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 Receiving electrolytes per protocol. OG in place; TF recs below for pt needs if prolonged intubation. Will need high protein ed once stable prior to d/c for wound healing. Will continue to monitor. Rec: 1. IF OGTF; Vital High Protein at 80ml/hr goal 2. IF TF; water flush 100ml Q6 3. IF TF; prealbumin Q /; daily wts 4. high protein ed once stable post-op 5. Once PO consider opioid antagonist post-op per surgeon approval to promote bowel regularity 6. routine bowel care once PO Addendum: 12/06/18 at [address] Amended: Links added.
--- NOTE | 2018-12-06 18:16 | NUR ---
Problems reprioritized. Patient report given, questions answered & plan of care reviewed with PILY Sal.
--- NOTE | 2018-12-06 18:20 | NUR ---
Patient in room ICU 2042. I have received report from Anastasiia NASCIMENTO, and had the opportunity to ask questions and assume patient care.
--- NOTE | 2018-12-06 19:45 | NUR ---
PT is intubated and mechanically vented. Tolerating settings well, O2 sat >98%. PT is lightly sedated with Precedex, tolerating well, resting comfortably. No s/s of distress noted at this time. VSS. Drsg to Midline ABD is intact. Cervantes in place draining to gravity. Bed is locked and low. Bilat soft wrist restraints in place and secure. Will continue to monitor.
[2018-12-06] MEDS: morphine 2 MG/ML inj. syringe IV PRN (20:33)
[2018-12-06] MEDS: ROPINIRole 0.25mg tablet OGT SCH (20:35)
[2018-12-07] VITALS (24 sets, daily range): BP systolic 115–165; BP diastolic 65–87
[2018-12-07] MEDS: morphine 2 MG/ML inj. syringe IV PRN (00:29)
[2018-12-07] MEDS: mineral oil/petrolatum ophthal oint EACHEYE SCH ×3 (02:06→14:00)
[2018-12-07] MEDS: VANCOmycin 1250MG/NS 250ml Bag 250 ML IV SCH (02:06)
--- NOTE | 2018-12-07 03:30 | NUR ---
PT continues to rest with no s/s of distress noted at this time. VSS. Bed is locked and low. Bilat soft wrist restraints in place and secure. Will continue to monitor.
[2018-12-07 03:32] LABS: BASOPHILS % (AUTO) 0.2 % (0-1); EOSINOPHILS % (AUTO) 0.6 % (0-6); HEMATOCRIT 29.1 % (42.0-52.0); HEMOGLOBIN 9.8 g/dl (14.0-17.9); LYMPHOCYTES # (AUTO) 0.5 X10'3 (1.1-4.8); LYMPHOCYTES % (AUTO) 7.3 % (21-51); MEAN CORPUSCULAR HEMOGLOBIN 31.7 PG (27.0-31.0); MEAN CORPUSCULAR HGB CONC 33.9 g/dL (33.0-36.5); MEAN CORPUSCULAR VOLUME 93.5 FL (78-98); MEAN PLATELET VOLUME 7.6 FL (7.4-10.4); MONOCYTES # (AUTO) 0.5 X10'3 (0-0.9); MONOCYTES % (AUTO) 6.7 % (2-12); NEUTROPHILS # (AUTO) 6.1 X10'3 (1.8-7.7); NEUTROPHILS % (AUTO) 85.2 % (42-75); PLATELET COUNT 133 X10'3 (140-440); RED BLOOD COUNT 3.11 X10'6 (4.70-6.10); RED CELL DISTRIBUTION WIDTH 15.1 % (11.5-14.5); WHITE BLOOD COUNT 7.2 X10'3 (4.5-11.0)
[2018-12-07] MEDS: ipratropium/albuterol 3ml nebule NEB SCH ×4 (03:34→21:12)
[2018-12-07 03:49] LABS: ALANINE AMINOTRANSFERASE 13 U/L (12-78); ALBUMIN 2.1 G/DL (3.4-5.0); ALBUMIN/GLOBULIN RATIO 0.6 (1.1-1.5); ALKALINE PHOSPHATASE 64 IU/L (46-116); ANION GAP 7 (8-16); ASPARTATE AMINO TRANSFERASE 21 U/L (10-37); BILIRUBIN,TOTAL 0.8 MG/DL (0.1-1.0); BLOOD UREA NITROGEN 15 MG/DL (7-18); BUN/CREATININE RATIO 14.7 (5.4-32.0); CALCIUM 7.7 MG/DL (8.5-10.1); CHLORIDE 108 MMOL/L (99-107); CREATININE 1.02 MG/DL (0.60-1.10); GLUCOSE 103 MG/DL (70-104); POTASSIUM 3.5 MMOL/L (3.5-5.1); SODIUM 140 MMOL/L (135-145); TOTAL CARBON DIOXIDE 24.8 MMOL/L (24-32); TOTAL PROTEIN 5.9 G/DL (6.4-8.2); eGFR 69 ML/MIN
[2018-12-07 03:50] LABS: ABG BASE EXCESS -2.9 mmol/L (-2.0-3.0); ABG HCO3 21.2 mmol/L (22.0-26.0); ABG OXYGEN SATURATION 96.8 % (95-98); ABG PCO2 (T) 33.6 mmHg (35.0-45.0); ABG PH (T) 7.416 (7.350-7.450); ABG PO2 (T) 89.1 mmHg (83-108); ALLEN'S TEST Positive; FCOHb 0.3 % (0.5-1.5); FMetHb 0.3 % (0.3-1.12); FO2Hb 96.2 % (94-100); MINUTE VOLUME 6 L/min; PATIENT TEMPERATURE 36.3; PEEP 5 cm H2O; RESPIRATORY RATE 10 b/min; RESPIRATORY RATE (OBSERVED) 13 b/min; TIDAL VOLUME 450 mL; TOTAL HEMOGLOBIN 10.5 G/dl (14.0-17.9)
[2018-12-07 03:59] LABS: MAGNESIUM 1.9 MG/DL (1.5-2.4); PHOSPHORUS 2.9 MG/DL (2.3-4.5)
[2018-12-07] MEDS: dexmedetomidin/NS 400mcg/100ml 100 ML IV SCH (04:51)
--- NOTE | 2018-12-07 06:30 | NUR ---
Patient in room ICU 2042. I have received report from Doron NASCIMENTO and had the opportunity to ask questions and assume patient care.
--- NOTE | 2018-12-07 06:31 | NUR ---
Problems reprioritized. Patient report given, questions answered & plan of care reviewed with Nathalie NASCIMENTO.
[2018-12-07] MEDS: levoTHYROXINE 75mcg tablet OGT SCH (07:23)
[2018-12-07] MEDS: aspirin 81mg tab.chew OGT SCH (07:23)
[2018-12-07] MEDS: amiodarone 200mg tablet OGT SCH (07:23)
[2018-12-07] MEDS: pantoprazole 40 MG vial IV SCH (07:23)
[2018-12-07] MEDS: carvedilol 6.25mg tablet OGT SCH ×2 (07:23→22:08)
[2018-12-07] MEDS: lactobacillus rhamnosus 10,000 MMU CELLS/CAPSULE OGT SCH ×2 (07:23→20:00)
[2018-12-07] MEDS: ESCITALOPRAM OXALATE 5 MG TABLET OGT SCH (09:17)
[2018-12-07] MEDS: Potassium Cl inj 40 MEQ in dextrose 5%-normal saline 1,000 ML IV SCH ×2 (10:42→22:55)
--- NOTE | 2018-12-07 11:53 | NUR ---
GENA Introducer D/C'd per Dr. Vázquez's orders; No abnormal s/s of bleeding noted. Dressing changed on central line that is still in patient's left neck.
--- NOTE | 2018-12-07 12:02 | NUR ---
TPN Consult: TPN to start today per surgeon; pt remains intubated no nutrition 5 days post-op. No BM yet. Renal electrolytes per sheetmetal worker. Non-E formula w/ K/Mg/Phos protocols in place per clinical pharmacist. Surgeon requests TPN start at 80ml/hr; must start at lower rate per ASPEN guidelines and 30ml/hr per hospital policy given higher chance of refeeding syndrome if started at higher rate. Per MD plans to extubated today. Would benefit from PO diet upon extubation for additional gut stimulation and to prevent bacterial translocation as medically indicated. TPN recs below; will monitor for tolerance and diet advancement following extubation. Rec: 1. TPN per MD via central line using Clinimix non-E 5/15 2L bag at 115ml/hr goal. Initiate at 30ml/hr and if tolerated advance Q12 to goal. 2. Separate lipid infusions using 120ml 20% intralipids to run Q12 daily at 10ml/hr. 3. In total; to provide 2760ml fluid, 138g AA, 414g DEX (3.43mg/kg/min), and 1648 total non-protein kcals. 3. prealbumin Q /; daily wts 4. high protein ed once stable post-op 5. Once PO consider opioid antagonist post-op per surgeon approval to promote bowel regularity 6. routine bowel care once PO 7. upon extubation; IF unable to pass BSS/take PO would benefit from post-pyloric feeds post-op to maintain gut integrity as medically indicated using Vital High Protein at 80ml/hr. Addendum: 12/07/18 at [address] Amended: Links added.
[2018-12-07] MEDS ORDERED: Dextrose 10%-water IV solution 1,000 ML IV PRN (12:26)
[2018-12-07] MEDS ORDERED: Neutra Phos packet PO PRN (12:30)
[2018-12-07] MEDS ORDERED: sodium phosphate inj. 30 MMOL in dextrose 5%-water 250 ML IV PRN (12:30)
--- NOTE | 2018-12-07 12:55 | NUR ---
Patient PA Introducer site bleeding and oozing; pressure held for additional 10 minutes. Blood cleaned from patient and dressing changed again at Central Line site, will continue to monitor.
--- NOTE | 2018-12-07 13:45 | NUR ---
Patient self extubated. Restraints were on and belted down tightly, however patient was able to reach ETT with some maneuvering. Dr. Vázquez called, pt. placed on 6LNC by RT and tolerating well. Patient is alert and oriented x3, and when asked why he pulled the tube out he said he was done having it in place. Patient is currently 99% on 6LNC. Coughing, using flutter valve, and using IS with prompting.
[2018-12-07] MEDS ORDERED: albuterol 2.5 MG/3 ML nebule ONE (13:48)
[2018-12-07] MEDS ORDERED: albuterol 2.5 MG/3 ML nebule NEB PRN (14:05)
[2018-12-07 14:51] LABS: ALANINE AMINOTRANSFERASE 12 U/L (12-78); ALBUMIN/GLOBULIN RATIO 0.5 (1.1-1.5); ALKALINE PHOSPHATASE 61 IU/L (46-116); ANION GAP 9 (8-16); ASPARTATE AMINO TRANSFERASE 18 U/L (10-37); BILIRUBIN,TOTAL 0.8 MG/DL (0.1-1.0); BLOOD UREA NITROGEN 15 MG/DL (7-18); BUN/CREATININE RATIO 15.6 (5.4-32.0); CALCIUM 7.7 MG/DL (8.5-10.1); CHLORIDE 107 MMOL/L (99-107); CREATININE 0.96 MG/DL (0.60-1.10); GLUCOSE 120 MG/DL (70-104); MAGNESIUM 1.8 MG/DL (1.5-2.4); PHOSPHORUS 2.6 MG/DL (2.3-4.5); POTASSIUM 3.3 MMOL/L (3.5-5.1); PREALBUMIN 8.3 MG/DL (19-36); SODIUM 140 MMOL/L (135-145); TOTAL CARBON DIOXIDE 24.2 MMOL/L (24-32); TOTAL PROTEIN 5.7 G/DL (6.4-8.2); TRIGLYCERIDES 69 MG/DL (20-135); eGFR 74 ML/MIN
--- NOTE | 2018-12-07 16:43 | NUR ---
PT. WAS ON 6 LITERS POST SELF EXTUBATION AND BAGGING. NOT MECHANICAL VENTILATION Addendum: 12/07/18 at 1644 by Kobe Drummond RT Amended: Links added.
--- NOTE | 2018-12-07 18:35 | NUR ---
Patient in room ICU 2042. I have received report from Nathalie NASCIMENTO and had the opportunity to ask questions and assume patient care. Pt received awake, drowsy on Oxygen at 3L NC. Saturation is 97-98%. Rhythm is AV paved rate is 70 BPM.Right IJ triple lumen central line is transduced. IVF infusing to proximal port. Medial port flushed. Abdominal dressing is midline & intact. Small amount of old drainage noted. Indwelling Cervantes cath drains christian colored urine. Pt denies pain at shift change.
--- NOTE | 2018-12-07 18:35 | NUR ---
Problems reprioritized. Patient report given, questions answered & plan of care reviewed with Marichuy NASCIMENTO.
[2018-12-07] MEDS ORDERED: calcium chloride 100 MG/1 ML inj IV ONE (18:42)
[2018-12-07] MEDS: Trace element-5 inj. 1 ML in amino acid 5%/D15W 2,000 ML IV SCH (19:42)
[2018-12-07] MEDS: fat emulsion IV bag 250 ML IV SCH (19:51)
[2018-12-07] MEDS: heparin, porcine 5000 units/ml vial SQ SCH (20:00)
--- NOTE | 2018-12-07 20:00 | NUR ---
Late entry for 1999. Heparin held at this time per Carrington Kiser. Pt self extubated today and occasionally coughs up blood tinged secretions.
[2018-12-07] MEDS: ROPINIRole 0.25mg tablet OGT SCH (22:09)
[2018-12-07] MEDS: HYDROmorphone inj. 0.5 MG/0.5 ML DISP.SYRIN IV PRN (22:23)
[2018-12-08] VITALS (22 sets, daily range): BP systolic 143–182; BP diastolic 62–89
[2018-12-08] MEDS: dexmedetomidin/NS 400mcg/100ml 100 ML IV SCH ×2 (00:05→11:08)
[2018-12-08 01:14] LABS: BASOPHILS # (AUTO) 0.1 X10'3 (0-0.2); BASOPHILS % (AUTO) 0.7 % (0-1); EOSINOPHILS # (AUTO) 0.1 X10'3 (0-0.9); EOSINOPHILS % (AUTO) 0.7 % (0-6); HEMATOCRIT 28.7 % (42.0-52.0); HEMOGLOBIN 10.1 g/dl (14.0-17.9); LYMPHOCYTES # (AUTO) 0.5 X10'3 (1.1-4.8); LYMPHOCYTES % (AUTO) 6.4 % (21-51); MEAN CORPUSCULAR HEMOGLOBIN 32.6 PG (27.0-31.0); MEAN CORPUSCULAR HGB CONC 35.1 g/dL (33.0-36.5); MEAN CORPUSCULAR VOLUME 92.9 FL (78-98); MEAN PLATELET VOLUME 7.9 FL (7.4-10.4); MONOCYTES # (AUTO) 0.6 X10'3 (0-0.9); NEUTROPHILS # (AUTO) 6.7 X10'3 (1.8-7.7); NEUTROPHILS % (AUTO) 84.2 % (42-75); PLATELET COUNT 144 X10'3 (140-440); RED BLOOD COUNT 3.09 X10'6 (4.70-6.10)
[2018-12-08] MEDS ORDERED: VANCOMYCIN LEVEL IV ONE (01:30)
[2018-12-08 01:33] LABS: ALANINE AMINOTRANSFERASE 13 U/L (12-78); ALBUMIN/GLOBULIN RATIO 0.5 (1.1-1.5); ALKALINE PHOSPHATASE 59 IU/L (46-116); ANION GAP 7 (8-16); ASPARTATE AMINO TRANSFERASE 17 U/L (10-37); BILIRUBIN,TOTAL 0.7 MG/DL (0.1-1.0); BLOOD UREA NITROGEN 16 MG/DL (7-18); BUN/CREATININE RATIO 16.8 (5.4-32.0); CALCIUM 7.5 MG/DL (8.5-10.1); CHLORIDE 107 MMOL/L (99-107); CREATININE 0.95 MG/DL (0.60-1.10); GLUCOSE 173 MG/DL (70-104); SODIUM 139 MMOL/L (135-145); TOTAL CARBON DIOXIDE 24.9 MMOL/L (24-32); TOTAL PROTEIN 5.9 G/DL (6.4-8.2); eGFR 75 ML/MIN
[2018-12-08 01:35] LABS: MAGNESIUM 1.7 MG/DL (1.5-2.4); PHOSPHORUS 2.1 MG/DL (2.3-4.5); PREALBUMIN 8.4 MG/DL (19-36); TRIGLYCERIDES 186 MG/DL (20-135); VANCOMYCIN,TROUGH 14.7 UG/ML (6.0-14.0)
[2018-12-08 01:37] LABS: POTASSIUM 3.1 MMOL/L (3.5-5.1)
[2018-12-08] MEDS: VANCOmycin 1250MG/NS 250ml Bag 250 ML IV SCH (02:13)
[2018-12-08] MEDS: potassium Cl 20mEq/100mL bag 100 ML IV PRN ×4 (02:27→20:42)
[2018-12-08] MEDS: ipratropium/albuterol 3ml nebule NEB SCH ×4 (03:01→20:41)
--- NOTE | 2018-12-08 06:15 | NUR ---
Problems reprioritized. Patient report given, questions answered & plan of care reviewed with Nathalie NASCIMENTO.
[2018-12-08] MEDS ORDERED: metoclopramide 5 mg/ml inj IV PRN (06:40)
[2018-12-08] MEDS: levoTHYROXINE 75mcg tablet OGT SCH ×2 (07:00→07:59)
[2018-12-08] MEDS: HYDROmorphone inj. 0.5 MG/0.5 ML DISP.SYRIN IV PRN ×4 (07:45→20:18)
[2018-12-08] MEDS: MVI, adult No.4 with vit. K 10 ML in dextrose 5% water 500ml 500 ML IV SCH ×2 (07:59)
[2018-12-08] MEDS: carvedilol 6.25mg tablet OGT SCH ×2 (07:59→20:11)
[2018-12-08] MEDS: amiodarone 200mg tablet OGT SCH ×2 (07:59→08:00)
[2018-12-08] MEDS: pantoprazole 40 MG vial IV SCH (07:59)
[2018-12-08] MEDS: methylnaltrexone br 12mg/0.6ml inj***SubQ only SQ SCH (08:00)
[2018-12-08] MEDS: heparin, porcine 5000 units/ml vial SQ SCH ×2 (08:00→20:12)
[2018-12-08] MEDS: lactobacillus rhamnosus 10,000 MMU CELLS/CAPSULE OGT SCH ×2 (08:00→20:11)
[2018-12-08] MEDS: aspirin 81mg tab.chew OGT SCH (08:00)
[2018-12-08] MEDS: ESCITALOPRAM OXALATE 5 MG TABLET OGT SCH (08:00)
--- NOTE | 2018-12-08 08:02 | NUR ---
scanner not working two RN medications verfied with Berta NASCIMENTO
[2018-12-08] MEDS: Potassium Cl inj 40 MEQ in dextrose 5%-normal saline 1,000 ML IV SCH (09:52)
--- NOTE | 2018-12-08 13:36 | NUR ---
Follow up: patient self extubated yesterday, seen by BROADCAST MAINTENANCE ENGINEER this morning, passed patient for pureed with nectar thick liquids. Noted slight decrease in potassium, magnesium, and phosphorus, per pharmacy appears to be signs of refeeding and TPN will be help at 30 ml/hr until electrolytes normalize, he is receiving IV replacement per protocol. Will continue to follow. TPN Consult: TPN to start today per surgeon; pt remains intubated no nutrition 5 days post-op. No BM yet. Renal electrolytes per flat sheet maker. Non-E formula w/ K/Mg/Phos protocols in place per clinical pharmacist. Surgeon requests TPN start at 80ml/hr; must start at lower rate per ASPEN guidelines and 30ml/hr per hospital policy given higher chance of refeeding syndrome if started at higher rate. Per MD plans to extubated today. Would benefit from PO diet upon extubation for additional gut stimulation and to prevent bacterial translocation as medically indicated. TPN recs below; will monitor for tolerance and diet advancement following extubation. Rec: 1. TPN per MD via central line using Clinimix non-E 5/15 2L bag at 115ml/hr goal. Initiate at 30ml/hr and if tolerated advance Q12 to goal. 2. Separate lipid infusions using 120ml 20% intralipids to run Q12 daily at 10ml/hr. 3. In total; to provide 2760ml fluid, 138g AA, 414g DEX (3.43mg/kg/min), and 1648 total non-protein kcals. 3. prealbumin Q /; daily wts 4. high protein ed once stable post-op 5. Once PO consider opioid antagonist post-op per surgeon approval to promote bowel regularity 6. routine bowel care once PO 7. Continue pureed diet with nectar thick liquid per BROADCAST MAINTENANCE ENGINEER recs Addendum: 12/08/18 at [address] Amended: Links added.
--- NOTE | 2018-12-08 14:24 | NUR ---
pt's SBP 170s. Dr. Vázquez notified; awaiting response.
--- NOTE | 2018-12-08 15:59 | NUR ---
While assessing patient prior to turning, noted that midline abdominal dressing was saturated. Linens changed and dressing changed to abd with 4x4s instead of island dressing. Abdomen soft, but tender. BP holding well, HR within normal parameters. Patient c/o pain, but expressed relief after dilaudid was administered.
[2018-12-08 18:20] LABS: ALANINE AMINOTRANSFERASE 14 U/L (12-78); ALBUMIN 2.2 G/DL (3.4-5.0); ALBUMIN/GLOBULIN RATIO 0.5 (1.1-1.5); ALKALINE PHOSPHATASE 68 IU/L (46-116); ANION GAP 9 (8-16); ASPARTATE AMINO TRANSFERASE 18 U/L (10-37); BILIRUBIN,TOTAL 0.7 MG/DL (0.1-1.0); BLOOD UREA NITROGEN 18 MG/DL (7-18); BUN/CREATININE RATIO 17.6 (5.4-32.0); CALCIUM 7.8 MG/DL (8.5-10.1); CHLORIDE 105 MMOL/L (99-107); CREATININE 1.02 MG/DL (0.60-1.10); GLUCOSE 131 MG/DL (70-104); MAGNESIUM 1.7 MG/DL (1.5-2.4); PHOSPHORUS 2.1 MG/DL (2.3-4.5); POTASSIUM 3.2 MMOL/L (3.5-5.1); SODIUM 137 MMOL/L (135-145); TOTAL CARBON DIOXIDE 22.9 MMOL/L (24-32); TOTAL PROTEIN 6.3 G/DL (6.4-8.2); eGFR 69 ML/MIN
--- NOTE | 2018-12-08 18:30 | NUR ---
Patient in room ICU 2042. I have received report from Nathalie NASCIMENTO and had the opportunity to ask questions and assume patient care. Pt received asleep. Easily aroused & oriented to person/place/ date/ & current president. Rhythm remains AV paced @ 70BPM.. Right IJ central line is transduced/zeroed and reads 10 with good wave form. On oxygen at 2L NC with saturations 98%. Lungs with inspiratory crackles in right upper anterior lobe & clear diminished in remaining lobes. Saline locks to right AC.right forearm & left AC are occluded. Abdominal dressing is and ABD pad with serous drainage. Edema is generalized pitting.. Left elbow area with foam dressing & weepy with serous colored fluid. Indwelling Cervantes cath drains dark yellow urine.
[2018-12-08] MEDS: Trace element-5 inj. 1 ML in amino acid 5%/D15W 2,000 ML IV SCH (19:40)
[2018-12-08] MEDS: sodium phosphate inj. 15 MMOL in dextrose 5%-water 150 ML IV PRN (19:43)
[2018-12-08] MEDS: fat emulsion IV bag 250 ML IV SCH (20:46)
[2018-12-08] MEDS: ROPINIRole 0.25mg tablet OGT SCH (21:55)
[2018-12-09] VITALS (30 sets, daily range): BP systolic 114–191; BP diastolic 54–90
--- NOTE | 2018-12-09 | NUR ---
Abdominal dressing changed. ABD pads wet with clear yellowish fluid from upper staple area. Surrounding skin cleansed with CHG wipes. ABD pads x4 placed over midline incision. Incision is approximated with lacey intact.
[2018-12-09] MEDS: HYDROmorphone inj. 0.5 MG/0.5 ML DISP.SYRIN IV PRN ×3 (00:32→22:13)
--- NOTE | 2018-12-09 00:42 | NUR ---
Call placed to Carrington Kiser regarding BP running on the high side currently 183/90. Pt remains in pain despite dilaudid given. PA updated. Awaiting orders.
[2018-12-09] MEDS: hydrALAZINE 20mg/ml inj. IV PRN ×2 (01:00→20:30)
--- NOTE | 2018-12-09 01:30 | NUR ---
Carrington Kiser at bedside assessing pt, & request for pain relief. Pt fell asleep after having conversation. Resting quietly.
[2018-12-09] MEDS: ipratropium/albuterol 3ml nebule NEB SCH ×4 (02:30→20:48)
[2018-12-09 03:09] LABS: BASOPHILS % (AUTO) 0.3 % (0-1); EOSINOPHILS # (AUTO) 0.1 X10'3 (0-0.9); EOSINOPHILS % (AUTO) 0.8 % (0-6); HEMOGLOBIN 10.5 g/dl (14.0-17.9); LYMPHOCYTES # (AUTO) 0.6 X10'3 (1.1-4.8); LYMPHOCYTES % (AUTO) 6.3 % (21-51); MEAN CORPUSCULAR HEMOGLOBIN 31.8 PG (27.0-31.0); MEAN CORPUSCULAR HGB CONC 33.9 g/dL (33.0-36.5); MEAN CORPUSCULAR VOLUME 93.9 FL (78-98); MEAN PLATELET VOLUME 8.2 FL (7.4-10.4); MONOCYTES # (AUTO) 0.9 X10'3 (0-0.9); MONOCYTES % (AUTO) 10.2 % (2-12); NEUTROPHILS # (AUTO) 7.5 X10'3 (1.8-7.7); NEUTROPHILS % (AUTO) 82.4 % (42-75); PLATELET COUNT 156 X10'3 (140-440); WHITE BLOOD COUNT 9.1 X10'3 (4.5-11.0)
[2018-12-09 03:35] LABS: BANDS% (MANUAL) 5 % (0-10); LYMPHOCYTES % (MANUAL) 6 % (21-51); METAMYLEOCYTES% (MANUAL) 5 % (0-0); MONOCYTES % (MANUAL) 8 % (2-12); MYELOCYTES % (MANUAL) 5 % (0-0); NEUTROPHILS % (MANUAL) 76 % (42-75); TOTAL CELLS COUNTED 100
[2018-12-09 03:36] LABS: PLATELET ESTIMATE NORMAL
[2018-12-09 03:46] LABS: ALANINE AMINOTRANSFERASE 14 U/L (12-78); ALBUMIN 2.2 G/DL (3.4-5.0); ALBUMIN/GLOBULIN RATIO 0.6 (1.1-1.5); ALKALINE PHOSPHATASE 65 IU/L (46-116); ANION GAP 9 (8-16); ASPARTATE AMINO TRANSFERASE 19 U/L (10-37); BILIRUBIN,TOTAL 0.5 MG/DL (0.1-1.0); BLOOD UREA NITROGEN 20 MG/DL (7-18); BUN/CREATININE RATIO 20.8 (5.4-32.0); CALCIUM 7.5 MG/DL (8.5-10.1); CHLORIDE 103 MMOL/L (99-107); CREATININE 0.96 MG/DL (0.60-1.10); GLUCOSE 145 MG/DL (70-104); MAGNESIUM 1.5 MG/DL (1.5-2.4); PHOSPHORUS 2.3 MG/DL (2.3-4.5); POTASSIUM 3.3 MMOL/L (3.5-5.1); SODIUM 135 MMOL/L (135-145); TOTAL CARBON DIOXIDE 22.9 MMOL/L (24-32); TOTAL PROTEIN 6.2 G/DL (6.4-8.2); eGFR 74 ML/MIN
[2018-12-09] MEDS: potassium Cl 20mEq/100mL bag 100 ML IV PRN ×2 (04:24→05:18)
--- NOTE | 2018-12-09 06:30 | NUR ---
Patient in room ICU 2042. I have received report from ANAHI NASCIMENTO and had the opportunity to ask questions and assume patient care.
--- NOTE | 2018-12-09 06:32 | NUR ---
Problems reprioritized. Patient report given, questions answered & plan of care reviewed with Ewelina RN.
[2018-12-09] MEDS: levoTHYROXINE 75mcg tablet OGT SCH (07:52)
[2018-12-09] MEDS: lactobacillus rhamnosus 10,000 MMU CELLS/CAPSULE OGT SCH ×2 (08:00→20:19)
[2018-12-09] MEDS: carvedilol 6.25mg tablet OGT SCH ×2 (08:55→20:18)
[2018-12-09] MEDS: pantoprazole 40 MG vial IV SCH (08:55)
[2018-12-09] MEDS: amiodarone 200mg tablet OGT SCH (08:55)
[2018-12-09] MEDS: aspirin 81mg tab.chew OGT SCH (08:55)
[2018-12-09] MEDS: heparin, porcine 5000 units/ml vial SQ SCH ×2 (08:56→20:20)
[2018-12-09] MEDS: ESCITALOPRAM OXALATE 5 MG TABLET OGT SCH (08:57)
[2018-12-09] MEDS: MVI, adult No.4 with vit. K 10 ML in dextrose 5% water 500ml 500 ML IV SCH ×2 (08:58)
[2018-12-09] MEDS ORDERED: potassium Cl 20 mEq SR tablet PO PRN ×2 (12:15)
--- NOTE | 2018-12-09 12:25 | NUR ---
Shelley rounded on pt, assessed pt incision. instructed to order for PICC placement, continue pureed liquids as tolerated, reglan q6 scheduled, and to change dressing daily. orders entered
[2018-12-09] MEDS: metoclopramide 5 mg/ml inj IV SCH ×2 (13:21→20:21)
[2018-12-09] MEDS: Trace element-5 inj. 1 ML in amino acid 5%/D15W 2,000 ML IV SCH (13:21)
[2018-12-09] MEDS: HYDROcodone/acetaminophen 10/325mg tab PO PRN ×2 (14:05→20:16)
--- NOTE | 2018-12-09 15:08 | NUR ---
asked to give pt his ropinirole early, pt is having restless legs and uncomfortable. Dr Guzman said that is fine
--- NOTE | 2018-12-09 15:18 | NUR ---
pt says he wants to take his ripinerole at 1999 .
[2018-12-09] MEDS: VANCOmycin 1250MG/NS 250ml Bag 250 ML IV SCH (15:29)
[2018-12-09] MEDS: ROPINIRole 0.25mg tablet OGT SCH (16:04)
--- NOTE | 2018-12-09 18:27 | NUR ---
Problems reprioritized. Patient report given, questions answered & plan of care reviewed with ANAHI NASCIMENTO.
--- NOTE | 2018-12-09 18:27 | NUR ---
Patient in room ICU 2042. I have received report from Gely NASCIMENTO and had the opportunity to ask questions and assume patient care.
[2018-12-09] MEDS: fat emulsion IV bag 250 ML IV SCH (20:40)
[2018-12-10] VITALS (24 sets, daily range): BP systolic 103–155; BP diastolic 42–96
[2018-12-10] MEDS: metoclopramide 5 mg/ml inj IV SCH ×4 (02:05→20:22)
[2018-12-10] MEDS: ipratropium/albuterol 3ml nebule NEB SCH ×4 (02:40→20:53)
[2018-12-10] MEDS: VANCOmycin 1250MG/NS 250ml Bag 250 ML IV SCH ×2 (02:49→14:39)
[2018-12-10 02:50] LABS: BASOPHILS % (AUTO) 0.3 % (0-1); EOSINOPHILS # (AUTO) 0.1 X10'3 (0-0.9); EOSINOPHILS % (AUTO) 0.8 % (0-6); HEMATOCRIT 29.1 % (42.0-52.0); HEMOGLOBIN 9.8 g/dl (14.0-17.9); LYMPHOCYTES # (AUTO) 0.6 X10'3 (1.1-4.8); MEAN CORPUSCULAR HEMOGLOBIN 31.6 PG (27.0-31.0); MEAN CORPUSCULAR HGB CONC 33.7 g/dL (33.0-36.5); MEAN CORPUSCULAR VOLUME 93.9 FL (78-98); MEAN PLATELET VOLUME 8.2 FL (7.4-10.4); MONOCYTES % (AUTO) 11.5 % (2-12); NEUTROPHILS # (AUTO) 7.3 X10'3 (1.8-7.7); NEUTROPHILS % (AUTO) 80.4 % (42-75); PLATELET COUNT 161 X10'3 (140-440); RED CELL DISTRIBUTION WIDTH 15.1 % (11.5-14.5); WHITE BLOOD COUNT 9.1 X10'3 (4.5-11.0)
[2018-12-10 02:57] LABS: ALANINE AMINOTRANSFERASE 13 U/L (12-78); ALBUMIN 1.9 G/DL (3.4-5.0); ALBUMIN/GLOBULIN RATIO 0.5 (1.1-1.5); ALKALINE PHOSPHATASE 58 IU/L (46-116); ANION GAP 7 (8-16); ASPARTATE AMINO TRANSFERASE 19 U/L (10-37); BILIRUBIN,TOTAL 0.5 MG/DL (0.1-1.0); BLOOD UREA NITROGEN 32 MG/DL (7-18); BUN/CREATININE RATIO 34.8 (5.4-32.0); CALCIUM 7.3 MG/DL (8.5-10.1); CHLORIDE 99 MMOL/L (99-107); CREATININE 0.92 MG/DL (0.60-1.10); GLUCOSE 134 MG/DL (70-104); MAGNESIUM 1.3 MG/DL (1.5-2.4); PHOSPHORUS 1.5 MG/DL (2.3-4.5); POTASSIUM 3.3 MMOL/L (3.5-5.1); SODIUM 129 MMOL/L (135-145); TOTAL CARBON DIOXIDE 22.7 MMOL/L (24-32); TOTAL PROTEIN 5.7 G/DL (6.4-8.2); eGFR 77 ML/MIN
[2018-12-10] MEDS ORDERED: acetaminophen 325mg tablet PO PRN (03:21)
[2018-12-10] MEDS ORDERED: aspirin 81mg tab.chew PO SCH (03:27)
[2018-12-10] MEDS ORDERED: ESCITALOPRAM OXALATE 5 MG TABLET PO SCH (03:27)
[2018-12-10] MEDS ORDERED: carvedilol 6.25mg tablet PO SCH (03:27)
[2018-12-10] MEDS ORDERED: amiodarone 200mg tablet PO SCH (03:27)
[2018-12-10] MEDS ORDERED: ROPINIRole 0.25mg tablet PO SCH (03:28)
[2018-12-10 03:52] LABS: PLATELET ESTIMATE NORMAL; TOTAL CELLS COUNTED 100
[2018-12-10] MEDS: potassium Cl 20mEq/100mL bag 100 ML IV PRN ×2 (04:00→05:21)
[2018-12-10] MEDS: magnesium 2GM in 50ml NS 50 ML IV PRN (04:01)
--- NOTE | 2018-12-10 06:15 | NUR ---
Problems reprioritized. Patient report given, questions answered & plan of care reviewed with Gely NASCIMENTO.
[2018-12-10] MEDS: Trace element-5 inj. 1 ML in amino acid 5%/D15W 2,000 ML IV SCH ×2 (06:28→07:27)
--- NOTE | 2018-12-10 06:30 | NUR ---
Patient in room ICU 2042. I have received report from ANAHI NASCIMENTO and had the opportunity to ask questions and assume patient care.
[2018-12-10] MEDS: levoTHYROXINE 75mcg tablet PO SCH (06:31)
[2018-12-10] MEDS: K and/or MAG REPLACEMENT MC SCH (08:00)
[2018-12-10] MEDS: MVI, adult No.4 with vit. K 10 ML in dextrose 5% water 500ml 500 ML IV SCH ×2 (08:32)
[2018-12-10] MEDS: methylnaltrexone br 12mg/0.6ml inj***SubQ only SQ SCH (08:32)
[2018-12-10] MEDS: pantoprazole 40 MG vial IV SCH (08:32)
[2018-12-10] MEDS: sodium phosphate inj. 15 MMOL in dextrose 5%-water 150 ML IV PRN (08:32)
[2018-12-10] MEDS: heparin, porcine 5000 units/ml vial SQ SCH ×2 (08:33→20:22)
[2018-12-10] MEDS: lactobacillus rhamnosus 10,000 MMU CELLS/CAPSULE OGT SCH ×2 (08:33→20:21)
--- NOTE | 2018-12-10 09:13 | NUR ---
F/u: Pt TPN returned to 30ml/hr given Na/K/Mg/Phos decrease once at goal rate; possibly refeeding syndrome w/ non-E formula. SEUN d/w RN IF surgeon approves to change to Clinimix E to prevent further chances of refeeding given goal volume rate. TG also 186 now; SEUN collaborated w/ clinical pharmacist to reduce to 8ml/hr lipid infusions; new recs below. Receiving electrolyte replacement per protocol. PO 0-25% PO meals receiving reglan and relistor post-op w/ no BM 10 days since admit; SEUN d/w RN for routine bowel care per MD approval since no other bowel care ordered and now PO. Will continue to monitor. Follow up: patient self extubated yesterday, seen by SERVOMECHANISM DESIGNER this morning, passed patient for pureed with nectar thick liquids. Noted slight decrease in potassium, magnesium, and phosphorus, per pharmacy appears to be signs of refeeding and TPN will be help at 30 ml/hr until electrolytes normalize, he is receiving IV replacement per protocol. Will continue to follow. Rec: 1. TPN per MD via central line using Clinimix non-E 5/15 2L bag at 115ml/hr goal. Initiate at 30ml/hr and if tolerated advance Q12 to goal.Change to Clinimix E pending MD approval w/ higher chance of refeeding syndrome given non-E and total volume required based on pt needs. 2. Separate lipid infusions using 96ml 20% intralipids to run Q12 daily at 8ml/hr. 3. In total; to provide 2760ml fluid, 138g AA, 414g DEX (3.43mg/kg/min), and 1598 total non-protein kcals. 3. prealbumin Q /; daily wts 4. high protein ed once stable post-op 5. continue opioid antagonist and promotility agent per surgeon 6. routine bowel care 7. Continue pureed diet with nectar thick liquid per SERVOMECHANISM DESIGNER recs Addendum: 12/10/18 at [address] Amended: Links added.
--- NOTE | 2018-12-10 11:39 | NUR ---
updated Thomas on pt showing signs of refeeding, change in CXR this AM, and need for routine bowel care.
[2018-12-10] MEDS ORDERED: acetaminophen 325mg/10.15ml oral unit dose solution PO PRN (12:25)
[2018-12-10] MEDS ORDERED: acetaminophen 325mg/10.15ml oral unit dose solution OGT PRN (12:25)
[2018-12-10] MEDS ORDERED: amiodarone 200mg tablet OGT SCH (12:26)
[2018-12-10] MEDS ORDERED: aspirin 81mg tab.chew OGT SCH (12:27)
[2018-12-10] MEDS ORDERED: POTASSIUM BICARB 20meq eff tab 20 MEQ TABLET.EFF OGT PRN ×2 (12:28)
[2018-12-10] MEDS ORDERED: ESCITALOPRAM OXALATE 5 MG TABLET OGT SCH (12:29)
[2018-12-10] MEDS ORDERED: dextrose ORAL solution 15 GM/59 ML bottle PO PRN ×2 (12:39)
--- NOTE | 2018-12-10 12:46 | NUR ---
Dr Rosa rounded and assessed pt. I informed him of refeeding symptoms on TPN. pt was wheezing at this time after getting back to bed with PT. paged for respiratory to give treatment. informed MD of pt temp high of 38.
[2018-12-10] MEDS ORDERED: POTASSIUM BICARB 20meq eff tab 20 MEQ TABLET.EFF PO PRN ×2 (12:51→12:52)
[2018-12-10] MEDS: HYDROcodone/acetaminophen 10/325mg tab PO PRN ×2 (13:18→19:02)
--- NOTE | 2018-12-10 18:13 | NUR ---
Patient in room ICU 2042. I have received report from Margi NASCIMENTO and had the opportunity to ask questions and assume patient care. Pt received resting comfortably in semi fowlers position, on room air with oxygen saturation 95%. Rhythm remains AV paced HR 70 BPM. Right IJ triple lumen central line is transduced. Abdominal dressing is intact with serous colored drainage. Cervantes cath drsins dark yellow urine. No distress at this time.
--- NOTE | 2018-12-10 18:13 | NUR ---
Problems reprioritized. Patient report given, questions answered & plan of care reviewed with ANAHI NASCIMENTO.
[2018-12-10 18:39] LABS: PHOSPHORUS 2.4 MG/DL (2.3-4.5); POTASSIUM 3.5 MMOL/L (3.5-5.1)
--- NOTE | 2018-12-10 20:12 | NUR ---
K+ 3.5 Phos 2.4
[2018-12-10] MEDS: carVEDilol 3.125mg tablet PO SCH (20:21)
[2018-12-10] MEDS: ROPINIRole 0.25mg tablet OGT SCH (20:21)
[2018-12-10] MEDS: fat emulsion IV bag 250 ML IV SCH ×2 (20:35→20:46)
[2018-12-11] VITALS (24 sets, daily range): BP systolic 117–166; BP diastolic 43–83
[2018-12-11] MEDS ORDERED: VANCOMYCIN LEVEL IV ONE (02:30)
[2018-12-11] MEDS: metoclopramide 5 mg/ml inj IV SCH ×4 (02:52→19:44)
[2018-12-11] MEDS: VANCOmycin 1250MG/NS 250ml Bag 250 ML IV SCH ×2 (02:57→03:00)
[2018-12-11 03:02] LABS: BASOPHILS % (AUTO) 0.1 % (0-1); EOSINOPHILS # (AUTO) 0.1 X10'3 (0-0.9); EOSINOPHILS % (AUTO) 0.4 % (0-6); HEMATOCRIT 30.2 % (42.0-52.0); HEMOGLOBIN 10.2 g/dl (14.0-17.9); LYMPHOCYTES # (AUTO) 0.6 X10'3 (1.1-4.8); LYMPHOCYTES % (AUTO) 5.1 % (21-51); MEAN CORPUSCULAR HEMOGLOBIN 31.3 PG (27.0-31.0); MEAN CORPUSCULAR HGB CONC 33.9 g/dL (33.0-36.5); MEAN CORPUSCULAR VOLUME 92.4 FL (78-98); MEAN PLATELET VOLUME 8.3 FL (7.4-10.4); MONOCYTES # (AUTO) 1.2 X10'3 (0-0.9); MONOCYTES % (AUTO) 10.1 % (2-12); NEUTROPHILS # (AUTO) 10.1 X10'3 (1.8-7.7); NEUTROPHILS % (AUTO) 84.3 % (42-75); PLATELET COUNT 185 X10'3 (140-440); RED BLOOD COUNT 3.27 X10'6 (4.70-6.10); RED CELL DISTRIBUTION WIDTH 14.9 % (11.5-14.5)
[2018-12-11 03:29] LABS: ALANINE AMINOTRANSFERASE 12 U/L (12-78); ALBUMIN 1.9 G/DL (3.4-5.0); ALBUMIN/GLOBULIN RATIO 0.5 (1.1-1.5); ALKALINE PHOSPHATASE 68 IU/L (46-116); ANION GAP 9 (8-16); ASPARTATE AMINO TRANSFERASE 20 U/L (10-37); BILIRUBIN,TOTAL 0.7 MG/DL (0.1-1.0); BLOOD UREA NITROGEN 26 MG/DL (7-18); BUN/CREATININE RATIO 26.5 (5.4-32.0); CALCIUM 7.3 MG/DL (8.5-10.1); CHLORIDE 96 MMOL/L (99-107); CREATININE 0.98 MG/DL (0.60-1.10); MAGNESIUM 1.6 MG/DL (1.5-2.4); PHOSPHORUS 2.5 MG/DL (2.3-4.5); POTASSIUM 3.5 MMOL/L (3.5-5.1); PREALBUMIN 10.2 MG/DL (19-36); SODIUM 127 MMOL/L (135-145); TOTAL CARBON DIOXIDE 22.1 MMOL/L (24-32); TOTAL PROTEIN 5.9 G/DL (6.4-8.2); TRIGLYCERIDES 62 MG/DL (20-135); eGFR 72 ML/MIN
[2018-12-11] MEDS: ipratropium/albuterol 3ml nebule NEB SCH ×4 (03:29→20:48)
[2018-12-11 03:30] LABS: GLUCOSE 99 MG/DL (70-104)
--- NOTE | 2018-12-11 03:32 | NUR ---
Pharmacist called with vanco level 24.5. Vancomycin not given. Med was scanned at 0257 however tubing remained clamped & medication was not administered. Orders received to not give vancomycin.
--- NOTE | 2018-12-11 06:30 | NUR ---
Patient in room ICU 2042. I have received report from PILY Benedict and had the opportunity to ask questions and assume patient care.
[2018-12-11] MEDS: levoTHYROXINE 75mcg tablet PO SCH (07:00)
[2018-12-11] MEDS: K and/or MAG REPLACEMENT MC SCH (08:00)
[2018-12-11] MEDS: MVI, adult No.4 with vit. K 10 ML in dextrose 5% water 500ml 500 ML IV SCH ×2 (08:08)
[2018-12-11] MEDS: pantoprazole 40 MG vial IV SCH (08:09)
[2018-12-11] MEDS: amiodarone 200mg tablet PO SCH (08:10)
[2018-12-11] MEDS: lactobacillus rhamnosus 10,000 MMU CELLS/CAPSULE OGT SCH ×2 (08:10→19:45)
[2018-12-11] MEDS: aspirin 81mg tab.chew PO SCH (08:10)
[2018-12-11] MEDS: heparin, porcine 5000 units/ml vial SQ SCH ×2 (08:11→19:45)
[2018-12-11] MEDS: carVEDilol 3.125mg tablet PO SCH ×2 (08:11→19:44)
[2018-12-11] MEDS: ESCITALOPRAM OXALATE 5 MG TABLET PO SCH (08:11)
--- NOTE | 2018-12-11 08:40 | NUR ---
IV lipids discontinued.
--- NOTE | 2018-12-11 09:30 | NUR ---
Pt febrile, bladder temp 38.2. WBC up to 12,000 from 9,000 yesterday. Pt is confused. Discussed with Dr. Vázquez. Panculture ordered.
--- NOTE | 2018-12-11 10:00 | NUR ---
Temp down to 37.8. LA 1.6. Phlebotomy unable to obtain blood cultures.
--- NOTE | 2018-12-11 10:27 | NUR ---
TPN rate increased back to goal 115 mL/hr.
--- NOTE | 2018-12-11 12:32 | NUR ---
F/u: TPN is at goal rate of 115 ml/hr. No signs refeeding. Poor appetite. Patient is confused. Pt would benefit from corpak tube feeding versus TPN, discussed at rounds. Receiving electrolyte replacement per protocol. PO 0-25% PO meals receiving reglan and relistor post-op with since admit; SEUN d/w RN for routine bowel care per MD approval since no other bowel care ordered and now PO. Will continue to monitor. Rec: 1. TPN per MD via central line using Clinimix non-E 5/15 2L bag at 115ml/hr goal. Initiate at 30ml/hr and if tolerated advance Q12 to goal.Change to Clinimix E pending MD approval w/ higher chance of refeeding syndrome given non-E and total volume required based on pt needs. 2. Separate lipid infusions using 96ml 20% intralipids to run Q12 daily at 8ml/hr. 3. In total; to provide 2760ml fluid, 138g AA, 414g DEX (3.43mg/kg/min), and 1598 total non-protein kcals. 3. prealbumin Q /; daily wts 4. continue opioid antagonist and promotility agent 5. routine bowel care 6. Continue pureed diet with nectar thick liquid per WHOLESALE AND RETAIL MERCHANT recs Addendum: 12/11/18 at [address] Amended: Links added.
--- NOTE | 2018-12-11 13:15 | NUR ---
Discussed initiating tube feedings with Dr. Rosa. He would like pt to remain on TPN until PO nutrition intake improves.
--- NOTE | 2018-12-11 13:35 | NUR ---
Right IJ central line discontinued. Cath tip sent for culture.
[2018-12-11] MEDS: Trace element-5 inj. 1 ML in amino acid 5%/D15W 2,000 ML IV SCH (13:47)
[2018-12-11] MEDS ORDERED: furosemide 40mg/4ml inj IV ONE (14:10)
--- NOTE | 2018-12-11 16:11 | NUR ---
Abdominal dressing changed. X3 ABD dressings saturated with yellow serous drainage. Vivi intact, redness at staple sites, incision well approximated. Rinsed with NS wound flush, applied xeroform to incision, dressed with x2 ABD pads, and micropore tape.
[2018-12-11] MEDS: vancomycin/NS 1 GM ADD-VANTAGE 250 ML IV SCH (16:20)
[2018-12-11] MEDS: acetaminophen 325mg/10.15ml oral unit dose solution PO PRN (17:13)
[2018-12-11] MEDS: HYDROmorphone inj. 0.5 MG/0.5 ML DISP.SYRIN IV PRN (17:14)
--- NOTE | 2018-12-11 18:02 | NUR ---
Pt responded well to Lasix. 2.3 L off. Wheezing is decreased. Body temp trending up again. Tylenol administered. Medicated for pain with IV dilaudid. Pt resting respirations even and unlabored.
--- NOTE | 2018-12-11 18:07 | NUR ---
Problems reprioritized. Patient report given, questions answered & plan of care reviewed with PILY Benedict.
[2018-12-11] MEDS: magnesium hydroxide 30ml (MOM) UD suspension PO SCH (19:54)
[2018-12-11] MEDS: ROPINIRole 0.25mg tablet OGT SCH (20:00)
[2018-12-11] MEDS: fat emulsion IV bag 250 ML IV SCH (20:35)
[2018-12-11] MEDS: ROPINIRole 0.25mg tablet PO SCH (20:37)
[2018-12-11 21:34] LABS: ALANINE AMINOTRANSFERASE 11 U/L (12-78); ALBUMIN 1.8 G/DL (3.4-5.0); ALBUMIN/GLOBULIN RATIO 0.5 (1.1-1.5); ALKALINE PHOSPHATASE 67 IU/L (46-116); ANION GAP 9 (8-16); ASPARTATE AMINO TRANSFERASE 19 U/L (10-37); BILIRUBIN,TOTAL 0.7 MG/DL (0.1-1.0); BLOOD UREA NITROGEN 28 MG/DL (7-18); BUN/CREATININE RATIO 26.4 (5.4-32.0); CALCIUM 7.1 MG/DL (8.5-10.1); CHLORIDE 93 MMOL/L (99-107); CREATININE 1.06 MG/DL (0.60-1.10); MAGNESIUM 1.4 MG/DL (1.5-2.4); PHOSPHORUS 2.2 MG/DL (2.3-4.5); SODIUM 126 MMOL/L (135-145); TOTAL CARBON DIOXIDE 23.9 MMOL/L (24-32); TOTAL PROTEIN 5.6 G/DL (6.4-8.2); eGFR 66 ML/MIN
[2018-12-11 21:47] LABS: GLUCOSE 169 MG/DL (70-104); POTASSIUM 2.9 MMOL/L (3.5-5.1)
[2018-12-11] MEDS: potassium Cl 20mEq/100mL bag 100 ML IV PRN ×3 (22:00→23:46)
[2018-12-11] MEDS: magnesium 2GM in 50ml NS 50 ML IV PRN (22:10)
[2018-12-11] MEDS: HYDROcodone/acetaminophen 10/325mg tab PO PRN (22:20)
[2018-12-12] VITALS (34 sets, daily range): BP systolic 94–167; BP diastolic 40–105
[2018-12-12] MEDS: sodium phosphate inj. 15 MMOL in dextrose 5%-water 150 ML IV PRN (00:22)
[2018-12-12] MEDS: potassium Cl 20mEq/100mL bag 100 ML IV PRN ×6 (00:23→23:04)
[2018-12-12] MEDS: acetaminophen 325mg/10.15ml oral unit dose solution PO PRN (02:15)
[2018-12-12] MEDS ORDERED: dextrose 50%-water 50ml dispensing syringe IV PRN ×2 (02:25)
[2018-12-12] MEDS ORDERED: insulin regular, human vial - multi-dose SQ SCH (02:25)
[2018-12-12] MEDS ORDERED: glucagon, human recombinant 1mg kit SUBCUT PRN (02:25)
[2018-12-12] MEDS ORDERED: dextrose ORAL solution 15 GM/59 ML bottle PO PRN ×2 (02:25)
[2018-12-12] MEDS: metoclopramide 5 mg/ml inj IV SCH ×4 (02:35→20:36)
[2018-12-12] MEDS: acetaminophen 325mg tablet PO PRN (02:36)
[2018-12-12] MEDS: ipratropium/albuterol 3ml nebule NEB SCH ×4 (02:50→20:42)
[2018-12-12 03:11] LABS: BASOPHILS # (AUTO) 0.1 X10'3 (0-0.2); BASOPHILS % (AUTO) 0.4 % (0-1); EOSINOPHILS # (AUTO) 0.1 X10'3 (0-0.9); EOSINOPHILS % (AUTO) 0.5 % (0-6); HEMATOCRIT 30.4 % (42.0-52.0); HEMOGLOBIN 10.3 g/dl (14.0-17.9); LYMPHOCYTES # (AUTO) 0.6 X10'3 (1.1-4.8); MEAN CORPUSCULAR HEMOGLOBIN 31.1 PG (27.0-31.0); MEAN CORPUSCULAR HGB CONC 33.8 g/dL (33.0-36.5); MEAN CORPUSCULAR VOLUME 91.9 FL (78-98); MEAN PLATELET VOLUME 7.8 FL (7.4-10.4); MONOCYTES # (AUTO) 1.2 X10'3 (0-0.9); MONOCYTES % (AUTO) 8.4 % (2-12); NEUTROPHILS % (AUTO) 86.7 % (42-75); PLATELET COUNT 225 X10'3 (140-440); RED BLOOD COUNT 3.31 X10'6 (4.70-6.10); RED CELL DISTRIBUTION WIDTH 15.3 % (11.5-14.5); WHITE BLOOD COUNT 13.9 X10'3 (4.5-11.0)
[2018-12-12 03:23] LABS: ALANINE AMINOTRANSFERASE 8 U/L (12-78); ALBUMIN 1.9 G/DL (3.4-5.0); ALBUMIN/GLOBULIN RATIO 0.5 (1.1-1.5); ALKALINE PHOSPHATASE 73 IU/L (46-116); ANION GAP 7 (8-16); ASPARTATE AMINO TRANSFERASE 19 U/L (10-37); BILIRUBIN,TOTAL 0.7 MG/DL (0.1-1.0); BLOOD UREA NITROGEN 31 MG/DL (7-18); BUN/CREATININE RATIO 32.3 (5.4-32.0); CALCIUM 7.3 MG/DL (8.5-10.1); CHLORIDE 93 MMOL/L (99-107); CREATININE 0.96 MG/DL (0.60-1.10); GLUCOSE 141 MG/DL (70-104); MAGNESIUM 1.7 MG/DL (1.5-2.4); PHOSPHORUS 2.2 MG/DL (2.3-4.5); SODIUM 124 MMOL/L (135-145); TOTAL CARBON DIOXIDE 23.7 MMOL/L (24-32); TRIGLYCERIDES 38 MG/DL (20-135); eGFR 74 ML/MIN
[2018-12-12] MEDS: vancomycin/NS 1 GM ADD-VANTAGE 250 ML IV SCH ×2 (03:29→15:31)
[2018-12-12 03:35] LABS: HEMOGLOBIN A1C 5.9 % (4.5-6.2)
[2018-12-12 03:42] LABS: TOTAL CELLS COUNTED 100
[2018-12-12 03:43] LABS: PLATELET ESTIMATE NORMAL; POLYCHROMASIA FEW
[2018-12-12 03:44] LABS: ANISOCYTOSIS 1+
[2018-12-12] MEDS: hydrALAZINE 20mg/ml inj. IV PRN (04:15)
--- NOTE | 2018-12-12 04:15 | NUR ---
BP 167/89 Apresoline given. Pt SOB. Suctioned for pink frothy secretions. Oxygen saturation is 95% Lungs with crackles & wheezing.
[2018-12-12] MEDS ORDERED: furosemide 40mg/4ml inj IV ONE (04:30)
--- NOTE | 2018-12-12 04:30 | NUR ---
BP 145/57 RR 26 O2 saturation 94% RR labored. Lasix 40 mg given, Carrington Kiser at bedside. Chest xray ordered. Pt is drowsy.O2 Sat is 94%.RR 26/min.
[2018-12-12] MEDS ORDERED: nitroGLYCERIN 0.4mg SUBLingual tab SL ONE ×2 (04:35→04:36)
[2018-12-12 05:06] LABS: ABG BASE EXCESS -2.5 mmol/L (-2.0-3.0); ABG HCO3 20.9 mmol/L (22.0-26.0); ABG OXYGEN SATURATION 93.8 % (95-98); ABG PH (T) 7.434 (7.350-7.450); ABG PO2 (T) 65.9 mmHg (83-108); FCOHb 0.6 % (0.5-1.5); FLOW 3 L/min; FMetHb 0.1 % (0.3-1.12); FO2Hb 93.1 % (94-100); PATIENT TEMPERATURE 37.6; RESPIRATORY RATE (OBSERVED) 25 b/min; TOTAL HEMOGLOBIN 11.2 G/dl (14.0-17.9)
--- NOTE | 2018-12-12 05:10 | NUR ---
Pt placed on BIPAP FIO2 35%. Urine outpost lasix is 350 thus far. RR less labored O2 sat is 97% BP 149/54. Carrington Kiser contacted Dr White. Physician updated.
[2018-12-12] MEDS ORDERED: nitroGLYCERIN-Tridil 50MG/D5W 250 ML IV PRN (05:12)
[2018-12-12] MEDS: cefepime 1GM/NS ADD-VANTAGE 100 ML IV SCH ×3 (05:15→22:47)
[2018-12-12] MEDS ORDERED: nitroGLYCERIN-Tridil 50MG/D5W 250 ML IV ONE (05:17)
--- NOTE | 2018-12-12 05:30 | NUR ---
Nitroglycerine drip started @ 10mcg/min. Rhythm remains paced HR 70. O2 Sat is 97-98%. BP 134/59.
--- NOTE | 2018-12-12 06:41 | NUR ---
Patient in room ICU 2042. I have received report from Marichuy NASCIMENTO and had the opportunity to ask questions and assume patient care. Patient laying in bed with bipap on 35%, lipids, tpn and nitro infusing to R PICC line, corea draining to gravity. Vital signs stable will continue to monitor
[2018-12-12] MEDS: levoTHYROXINE 75mcg tablet PO SCH (07:00)
[2018-12-12] MEDS: magnesium hydroxide 30ml (MOM) UD suspension PO SCH ×2 (08:00→20:00)
[2018-12-12] MEDS: ESCITALOPRAM OXALATE 5 MG TABLET PO SCH (08:00)
[2018-12-12] MEDS: carVEDilol 3.125mg tablet PO SCH ×2 (08:00→20:00)
[2018-12-12] MEDS: K and/or MAG REPLACEMENT MC SCH (08:00)
[2018-12-12] MEDS: amiodarone 200mg tablet PO SCH (08:00)
[2018-12-12] MEDS: methylnaltrexone br 12mg/0.6ml inj***SubQ only SQ SCH (08:00)
[2018-12-12] MEDS: lactobacillus rhamnosus 10,000 MMU CELLS/CAPSULE OGT SCH ×2 (08:00→20:00)
[2018-12-12] MEDS: aspirin 81mg tab.chew PO SCH (08:00)
[2018-12-12] MEDS: pantoprazole 40 MG vial IV SCH (08:37)
[2018-12-12] MEDS: MVI, adult No.4 with vit. K 10 ML in dextrose 5% water 500ml 500 ML IV SCH ×2 (08:37)
[2018-12-12] MEDS: heparin, porcine 5000 units/ml vial SQ SCH ×2 (08:38→20:36)
[2018-12-12 08:40] LABS: ALBUMIN 1.8 G/DL (3.4-5.0); ANION GAP 10 (8-16); BLOOD UREA NITROGEN 34 MG/DL (7-18); BUN/CREATININE RATIO 31.5 (5.4-32.0); CALCIUM 7.1 MG/DL (8.5-10.1); CHLORIDE 92 MMOL/L (99-107); CREATININE 1.08 MG/DL (0.60-1.10); GLUCOSE 114 MG/DL (70-104); PHOSPHORUS 2.2 MG/DL (2.3-4.5); POTASSIUM 3.1 MMOL/L (3.5-5.1); SODIUM 126 MMOL/L (135-145); TOTAL CARBON DIOXIDE 24.5 MMOL/L (24-32); eGFR 64 ML/MIN
--- NOTE | 2018-12-12 09:30 | NUR ---
Talked to Dr. Vázquez about the creasing coarseness of the patients lung blanchard, he ordered a lasix drip. No other new orders at this time
[2018-12-12] MEDS: Trace element-5 inj. 1 ML in amino acid 5%/D15W 2,000 ML IV SCH (11:30)
[2018-12-12] MEDS: furosemide inj 100 ML IV SCH (11:31)
--- NOTE | 2018-12-12 13:30 | NUR ---
TPN consult, patient is already receiving TPN at goal rate of 115 ml/hr. ALso on pureed diet but is unable to eat meals possibly d/t shortness of breath. Patient is also edematous. Poor appetite. Patient is confused, noted on bipap today. Pt would benefit from corpak tube feeding versus TPN, discussed at rounds 12/11, however with patient's confused state putting a corpak may not be feasible. Recommend to continue the TPN for nutrition until patient is able to eat >65% of pureed diet or able to put corpak for TF. Receiving electrolyte replacement per protocol. No BM since admission, refusing meals. Receiving reglan and relistor post-op with since admit; has milk of magnesia on med list however patient unable to take, documented as "unable to swallow" the med. Will continue to monitor. Rec: 1. TPN per MD via central line using Clinimix non-E 5/15 2L bag at 115ml/hr goal. Initiate at 30ml/hr and if tolerated advance Q12 to goal.Change to Clinimix E pending MD approval w/ higher chance of refeeding syndrome given non-E and total volume required based on pt needs. 2. Separate lipid infusions using 96ml 20% intralipids to run Q12 daily at 8ml/hr. 3. In total; to provide 2760ml fluid, 138g AA, 414g DEX (3.43mg/kg/min), and 1598 total non-protein kcals. 3. prealbumin Q /; daily wts 4. continue opioid antagonist and promotility agent 5. continue routine bowel care 6. Continue pureed diet with nectar thick liquid per ENVIRONMENTAL SUSTAINABILITY MANAGER recs Addendum: 12/12/18 at [address] Amended: Links added.
--- NOTE | 2018-12-12 16:26 | NUR ---
Paged Dr. Rosa to updated him on his patient awaiting a phone call back
[2018-12-12 16:41] LABS: ALBUMIN 1.6 G/DL (3.4-5.0); ANION GAP 9 (8-16); BLOOD UREA NITROGEN 33 MG/DL (7-18); BUN/CREATININE RATIO 31.7 (5.4-32.0); CALCIUM 6.8 MG/DL (8.5-10.1); CHLORIDE 92 MMOL/L (99-107); CREATININE 1.04 MG/DL (0.60-1.10); GLUCOSE 155 MG/DL (70-104); MAGNESIUM 1.4 MG/DL (1.5-2.4); POTASSIUM 3.3 MMOL/L (3.5-5.1); SODIUM 124 MMOL/L (135-145); TOTAL CARBON DIOXIDE 23.3 MMOL/L (24-32); eGFR 67 ML/MIN
[2018-12-12] MEDS: magnesium 4gm in 100ml NS 100 ML IV PRN (17:38)
--- NOTE | 2018-12-12 18:19 | NUR ---
Patient in room ICU 2042. I have received report from Darby NASCIMENTO and had the opportunity to ask questions and assume patient care. Patient received drowsy on oxygen at 3L NC saturating 95%. RR unlabored, lungs with wheezes. Rhythm is paced. Right upper arm PICC line with Tridil drip at 15mcg/min. BP 129/49. Lasix drip is at 10mg/hr. TPN/Intralipids/ magnesium & K+ also infusing. Cervantes cath drains pale yellow urine with 24 hr urine collection in progress. Sitter is at bedside.
--- NOTE | 2018-12-12 18:19 | NUR ---
Problems reprioritized. Patient report given, questions answered & plan of care reviewed with Marichuy NASCIMENTO.
--- NOTE | 2018-12-12 19:10 | NUR ---
& son are in. Update given. Discussion regarding BIPAP/intubation. Family deciding at this time as pts wishes are to not be intubated for long periods. RT paged to place pt back on BIPAP. RR labored. O2 Sat 97% on 3 L/M, pt using accessory muscles to oxygenate.
--- NOTE | 2018-12-12 19:16 | NUR ---
RT here. Pt being placed back on BIPAP.
--- NOTE | 2018-12-12 19:30 | NUR ---
RR unlabored on BIPAP I-PAP 15 E-Pap 7, FIO2 35%. Pt is drowsy, arouses when spoken to.Oxygen saturation is 100%.
[2018-12-12] MEDS: insulin glargine (Lantus) pen - multi-dose SQ SCH (21:00)
[2018-12-12] MEDS: ROPINIRole 0.25mg tablet PO SCH (21:00)
[2018-12-12] MEDS: fat emulsion IV bag 250 ML IV SCH (21:00)
--- NOTE | 2018-12-12 21:20 | NUR ---
Dr Rosa & Carrington Kiser at bedside.
[2018-12-12 22:39] LABS: ALBUMIN 1.7 G/DL (3.4-5.0); ANION GAP 8 (8-16); BLOOD UREA NITROGEN 37 MG/DL (7-18); BUN/CREATININE RATIO 34.3 (5.4-32.0); CHLORIDE 92 MMOL/L (99-107); CREATININE 1.08 MG/DL (0.60-1.10); GLUCOSE 153 MG/DL (70-104); MAGNESIUM 2.1 MG/DL (1.5-2.4); PHOSPHORUS 1.6 MG/DL (2.3-4.5); POTASSIUM 3.2 MMOL/L (3.5-5.1); SODIUM 124 MMOL/L (135-145); TOTAL CARBON DIOXIDE 24.4 MMOL/L (24-32); eGFR 64 ML/MIN
[2018-12-13] VITALS (42 sets, daily range): BP systolic 96–149; BP diastolic 34–68
[2018-12-13] MEDS: HYDROmorphone inj. 0.5 MG/0.5 ML DISP.SYRIN IV PRN ×2 (00:18→22:17)
[2018-12-13] MEDS: sodium phosphate inj. 15 MMOL in dextrose 5%-water 150 ML IV PRN (00:58)
[2018-12-13] MEDS: Trace element-5 inj. 1 ML in amino acid 5%/D15W 2,000 ML IV SCH ×3 (02:10→22:48)
[2018-12-13] MEDS ORDERED: VANCOMYCIN LEVEL IV ONE (02:30)
[2018-12-13 02:50] LABS: BASOPHILS # (AUTO) 0.1 X10'3 (0-0.2); BASOPHILS % (AUTO) 0.3 % (0-1); EOSINOPHILS # (AUTO) 0.1 X10'3 (0-0.9); EOSINOPHILS % (AUTO) 0.4 % (0-6); HEMATOCRIT 25.4 % (42.0-52.0); HEMOGLOBIN 8.6 g/dl (14.0-17.9); LYMPHOCYTES # (AUTO) 0.4 X10'3 (1.1-4.8); LYMPHOCYTES % (AUTO) 2.8 % (21-51); MEAN CORPUSCULAR HEMOGLOBIN 31.2 PG (27.0-31.0); MEAN CORPUSCULAR VOLUME 91.7 FL (78-98); MEAN PLATELET VOLUME 8.1 FL (7.4-10.4); MONOCYTES % (AUTO) 6.1 % (2-12); NEUTROPHILS # (AUTO) 14.3 X10'3 (1.8-7.7); NEUTROPHILS % (AUTO) 90.4 % (42-75); PLATELET COUNT 175 X10'3 (140-440); RED BLOOD COUNT 2.77 X10'6 (4.70-6.10); RED CELL DISTRIBUTION WIDTH 14.9 % (11.5-14.5); WHITE BLOOD COUNT 15.8 X10'3 (4.5-11.0)
[2018-12-13] MEDS: furosemide inj 100 ML IV SCH ×2 (02:50→09:25)
[2018-12-13] MEDS: vancomycin/NS 1 GM ADD-VANTAGE 250 ML IV SCH (03:00)
--- NOTE | 2018-12-13 03:00 | NUR ---
24 Hour urine collection complete.
[2018-12-13 03:05] LABS: ALANINE AMINOTRANSFERASE 11 U/L (12-78); ALBUMIN 1.6 G/DL (3.4-5.0); ALBUMIN/GLOBULIN RATIO 0.4 (1.1-1.5); ALKALINE PHOSPHATASE 64 IU/L (46-116); ANION GAP 4 (8-16); ASPARTATE AMINO TRANSFERASE 18 U/L (10-37); BILIRUBIN,TOTAL 0.6 MG/DL (0.1-1.0); BLOOD UREA NITROGEN 42 MG/DL (7-18); BUN/CREATININE RATIO 35.9 (5.4-32.0); CALCIUM 6.9 MG/DL (8.5-10.1); CHLORIDE 92 MMOL/L (99-107); CREATININE 1.17 MG/DL (0.60-1.10); GLUCOSE 146 MG/DL (70-104); MAGNESIUM 2.1 MG/DL (1.5-2.4); PHOSPHORUS 1.8 MG/DL (2.3-4.5); POTASSIUM 3.1 MMOL/L (3.5-5.1); SODIUM 124 MMOL/L (135-145); TOTAL CARBON DIOXIDE 27.9 MMOL/L (24-32); TOTAL PROTEIN 5.3 G/DL (6.4-8.2); TRIGLYCERIDES 36 MG/DL (20-135); eGFR 59 ML/MIN
[2018-12-13] MEDS: ipratropium/albuterol 3ml nebule NEB SCH ×4 (03:08→21:24)
[2018-12-13 03:09] LABS: VANCOMYCIN,TROUGH 26.2 UG/ML (6.0-14.0)
--- NOTE | 2018-12-13 03:11 | NUR ---
Vancomycin level called to pharmacy 26.2. Order received to hold vancomycin IVPB.
[2018-12-13] MEDS: metoclopramide 5 mg/ml inj IV SCH ×4 (03:19→19:48)
[2018-12-13 03:33] LABS: PARTIAL THROMBOPLASTIN TIME 34 SECONDS (22-32)
[2018-12-13 04:24] LABS: UREA NITROGEN 24HR,URINE 14.4 GM/24HR (7-20)
[2018-12-13] MEDS: potassium Cl 20mEq/100mL bag 100 ML IV PRN ×7 (05:00→23:13)
[2018-12-13] MEDS: cefepime 1GM/NS ADD-VANTAGE 100 ML IV SCH (05:22)
--- NOTE | 2018-12-13 06:30 | NUR ---
Problems reprioritized. Patient report given, questions answered & plan of care reviewed with Terri NASCIMENTO.
--- NOTE | 2018-12-13 06:30 | NUR ---
Patient in room ICU 2042. I have received report from Marichuy NASCIMENTO and had the opportunity to ask questions and assume patient care. patient is on bipap and vitals are stable at this time on nitro and lasix drip per md order. Patient responds to me appropriately and appears lethargic but, alert. Will continue to monitor
[2018-12-13] MEDS: levoTHYROXINE 75mcg tablet PO SCH (07:00)
[2018-12-13] MEDS: MVI, adult No.4 with vit. K 10 ML in dextrose 5% water 500ml 500 ML IV SCH ×2 (08:00)
[2018-12-13] MEDS: ESCITALOPRAM OXALATE 5 MG TABLET PO SCH (08:00)
[2018-12-13] MEDS: magnesium hydroxide 30ml (MOM) UD suspension PO SCH ×2 (08:00→19:49)
[2018-12-13] MEDS: aspirin 81mg tab.chew PO SCH (08:00)
[2018-12-13] MEDS: lactobacillus rhamnosus 10,000 MMU CELLS/CAPSULE OGT SCH ×2 (08:00→19:48)
[2018-12-13] MEDS: amiodarone 200mg tablet PO SCH (08:00)
[2018-12-13] MEDS: carVEDilol 3.125mg tablet PO SCH ×2 (08:00→19:49)
[2018-12-13] MEDS: heparin, porcine 5000 units/ml vial SQ SCH ×2 (09:23→19:48)
[2018-12-13] MEDS: pantoprazole 40 MG vial IV SCH (09:24)
--- NOTE | 2018-12-13 10:40 | NUR ---
patient remains off the bipap mask although all oral meds have been held due to patients inability to swallow without aspirating and has not been revaluated for swallow issues by speech therapy, VSS and sats are currently 96% on 3 liters. patient still wakes easily when spoken to. Family at the bedside and PT is attempting to work with the patient. Nitro is down to 2 and lasix remains at 30mg/hr.
[2018-12-13] MEDS: albumin (human) 25% 100ml IV 100 ML IV SCH (12:05)
[2018-12-13] MEDS ORDERED: vancomycin inj 500 MG in normal saline 100ml IV soln 100 ML IV SCH (15:00)
[2018-12-13] MEDS: piperacillin/tazo 4.5gm/100ml 100 ML IV SCH (15:42)
--- NOTE | 2018-12-13 17:59 | NUR ---
patients BS came back at 1293 which is not correct and the lab was informed of this. Patient has not met protocol yet so sample must have been contaminated by the TPN
--- NOTE | 2018-12-13 18:18 | NUR ---
liam chem panel and added mag and phos
--- NOTE | 2018-12-13 18:36 | NUR ---
there was a mix up with the labs today, I was under the impression the labs had already been delivered and I was in close contact with the lab asking about the results. I later realized the lab tube was still sitting on the unit and once I discovered this, I quickly had them taken down and then the lab results ended up being skewed by the TPN that the patient was on. Lab was delayed in getting these results back to me and I was transferring another patient at this time. I spoke with the charge nurse and decided to redraw the labs and now results are pending. Patients potassium came back at 2.2 and he is currently being replaced IV per protocol. Patient remains on a lasix drip at 30mg per hour and is NPO so he can not take PO potassium. aware of the low K and we are replacing per protocol.
--- NOTE | 2018-12-13 18:40 | NUR ---
Problems reprioritized. Patient report given, questions answered & plan of care reviewed with Isaiah NASCIMENTO.
[2018-12-13 19:52] LABS: ALANINE AMINOTRANSFERASE 12 U/L (12-78); ALBUMIN 1.9 G/DL (3.4-5.0); ALBUMIN/GLOBULIN RATIO 0.5 (1.1-1.5); ALKALINE PHOSPHATASE 66 IU/L (46-116); ANION GAP 5 (8-16); ASPARTATE AMINO TRANSFERASE 19 U/L (10-37); BILIRUBIN,TOTAL 0.7 MG/DL (0.1-1.0); BLOOD UREA NITROGEN 54 MG/DL (7-18); BUN/CREATININE RATIO 40.6 (5.4-32.0); CALCIUM 7.2 MG/DL (8.5-10.1); CHLORIDE 92 MMOL/L (99-107); CREATININE 1.33 MG/DL (0.60-1.10); GLUCOSE 123 MG/DL (70-104); MAGNESIUM 1.7 MG/DL (1.5-2.4); PHOSPHORUS 2.3 MG/DL (2.3-4.5); SODIUM 127 MMOL/L (135-145); TOTAL PROTEIN 5.6 G/DL (6.4-8.2); eGFR 51 ML/MIN
[2018-12-13 19:54] LABS: POTASSIUM 2.8 MMOL/L (3.5-5.1)
[2018-12-13] MEDS: fat emulsion IV bag 250 ML IV SCH (20:51)
[2018-12-13] MEDS: insulin glargine (Lantus) pen - multi-dose SQ SCH (21:00)
[2018-12-13] MEDS: ROPINIRole 0.25mg tablet PO SCH (21:00)
[2018-12-14] VITALS (24 sets, daily range): BP systolic 107–133; BP diastolic 44–69
[2018-12-14] MEDS: piperacillin/tazo 4.5gm/100ml 100 ML IV SCH ×3 (00:15→15:10)
[2018-12-14] MEDS: albumin (human) 25% 100ml IV 100 ML IV SCH ×3 (00:17→15:10)
[2018-12-14] MEDS: metoclopramide 5 mg/ml inj IV SCH ×4 (02:25→21:17)
[2018-12-14] MEDS: ipratropium/albuterol 3ml nebule NEB SCH ×4 (02:51→21:36)
[2018-12-14 02:56] LABS: BASOPHILS % (AUTO) 0.3 % (0-1); EOSINOPHILS # (AUTO) 0.2 X10'3 (0-0.9); EOSINOPHILS % (AUTO) 1.8 % (0-6); HEMATOCRIT 27.2 % (42.0-52.0); HEMOGLOBIN 9.1 g/dl (14.0-17.9); LYMPHOCYTES # (AUTO) 0.6 X10'3 (1.1-4.8); MEAN CORPUSCULAR HEMOGLOBIN 30.8 PG (27.0-31.0); MEAN CORPUSCULAR HGB CONC 33.3 g/dL (33.0-36.5); MEAN CORPUSCULAR VOLUME 92.4 FL (78-98); MEAN PLATELET VOLUME 8.1 FL (7.4-10.4); MONOCYTES % (AUTO) 9.1 % (2-12); NEUTROPHILS # (AUTO) 9.3 X10'3 (1.8-7.7); NEUTROPHILS % (AUTO) 83.8 % (42-75); PLATELET COUNT 162 X10'3 (140-440); RED BLOOD COUNT 2.94 X10'6 (4.70-6.10); RED CELL DISTRIBUTION WIDTH 15.1 % (11.5-14.5); WHITE BLOOD COUNT 11.1 X10'3 (4.5-11.0)
[2018-12-14 03:08] LABS: PARTIAL THROMBOPLASTIN TIME 32 SECONDS (22-32)
[2018-12-14 03:21] LABS: ALANINE AMINOTRANSFERASE 12 U/L (12-78); ALBUMIN 2.2 G/DL (3.4-5.0); ALBUMIN/GLOBULIN RATIO 0.6 (1.1-1.5); ALKALINE PHOSPHATASE 63 IU/L (46-116); ANION GAP 5 (8-16); ASPARTATE AMINO TRANSFERASE 18 U/L (10-37); BILIRUBIN,TOTAL 0.7 MG/DL (0.1-1.0); BLOOD UREA NITROGEN 59 MG/DL (7-18); BUN/CREATININE RATIO 42.8 (5.4-32.0); CALCIUM 7.4 MG/DL (8.5-10.1); CHLORIDE 92 MMOL/L (99-107); CREATININE 1.38 MG/DL (0.60-1.10); GLUCOSE 131 MG/DL (70-104); MAGNESIUM 1.6 MG/DL (1.5-2.4); PHOSPHORUS 1.9 MG/DL (2.3-4.5); PREALBUMIN 8.7 MG/DL (19-36); SODIUM 127 MMOL/L (135-145); TOTAL CARBON DIOXIDE 30.1 MMOL/L (24-32); TOTAL PROTEIN 5.8 G/DL (6.4-8.2); TRIGLYCERIDES 49 MG/DL (20-135); eGFR 49 ML/MIN
[2018-12-14 03:23] LABS: POTASSIUM 2.9 MMOL/L (3.5-5.1)
[2018-12-14] MEDS: potassium Cl 20mEq/100mL bag 100 ML IV PRN ×6 (03:31→18:40)
--- NOTE | 2018-12-14 06:30 | NUR ---
Patient in room CICU 2009. I have received report from brianna and had the opportunity to ask questions and assume patient care.
[2018-12-14] MEDS: pantoprazole 40 MG vial IV SCH ×2 (07:26→08:00)
[2018-12-14] MEDS: heparin, porcine 5000 units/ml vial SQ SCH ×2 (07:27→21:19)
[2018-12-14] MEDS: methylnaltrexone br 12mg/0.6ml inj***SubQ only SQ SCH (07:27)
[2018-12-14] MEDS: sodium phosphate inj. 15 MMOL in dextrose 5%-water 150 ML IV PRN (07:43)
[2018-12-14] MEDS: MVI, adult No.4 with vit. K 10 ML in dextrose 5% water 500ml 500 ML IV SCH ×2 (08:09)
[2018-12-14 08:16] LABS: RPR Non Reactive (Non Reactive)
[2018-12-14] MEDS: magnesium hydroxide 30ml (MOM) UD suspension PO SCH ×2 (08:16→21:17)
[2018-12-14] MEDS: aspirin 81mg tab.chew PO SCH (08:16)
[2018-12-14] MEDS: lactobacillus rhamnosus 10,000 MMU CELLS/CAPSULE OGT SCH ×3 (08:16→21:18)
[2018-12-14] MEDS: carVEDilol 3.125mg tablet PO SCH ×2 (08:16→21:18)
[2018-12-14] MEDS: levoTHYROXINE 75mcg tablet PO SCH (08:17)
[2018-12-14] MEDS: amiodarone 200mg tablet PO SCH (08:21)
[2018-12-14] MEDS: ESCITALOPRAM OXALATE 5 MG TABLET PO SCH (08:21)
--- NOTE | 2018-12-14 08:59 | NUR ---
rt student gave patient svn tx instead of medineb due to patient unable to do medineb Addendum: 12/14/18 at 0915 by Marisol Kent RT Amended: Links added.
--- NOTE | 2018-12-14 10:00 | NUR ---
pt sleepy, but arouses on own or to voice. knows his and son. reoriented to surroundings. able to take am meds crushed in yogurt. but refused any breakfast. continues with tpn. update to dr blair- passing flatus, no bm. aware of refusing breakfast.replacing k and phos
[2018-12-14 10:11] LABS: ALBUMIN 2.3 G/DL (3.4-5.0); ANION GAP 8 (8-16); BLOOD UREA NITROGEN 63 MG/DL (7-18); CHLORIDE 90 MMOL/L (99-107); GLUCOSE 149 MG/DL (70-104); MAGNESIUM 1.6 MG/DL (1.5-2.4); PHOSPHORUS 1.8 MG/DL (2.3-4.5); POTASSIUM 3.6 MMOL/L (3.5-5.1); SODIUM 127 MMOL/L (135-145); TOTAL CARBON DIOXIDE 29.3 MMOL/L (24-32); eGFR 44 ML/MIN
--- NOTE | 2018-12-14 11:34 | NUR ---
I have reviewed and agree with all medications administered and interventions performed by [facility] Student(CHRIS BARBER) Addendum: 12/14/18 at 1135 by Marisol Kent RT Amended: Links added.
--- NOTE | 2018-12-14 11:41 | NUR ---
I have reviewed and agree with all medications administered and interventions performed by [facility] Student(CHRIS OSBORN) Addendum: 12/14/18 at 1142 by Marisol Kent RT Amended: Links added. Addendum: 12/14/18 at 1202 by Marisol Kent RT (jignesh osborn)
[2018-12-14] MEDS: furosemide inj 100 ML IV SCH (12:10)
--- NOTE | 2018-12-14 12:23 | NUR ---
Reassessment: Patient continues on TPN to meet nutrition needs. No BM since admission. Per bedside nurse he is passing gas. TPN at goal rate of 115 ml/hr. Also on pureed diet but is unable to eat meals possibly d/t shortness of breath. Patient is also edematous. Poor appetite. Consistently refusing meals. Patient is confused. Refusal of meals likely r/t poor appetite d/t short of breath, confusion, and lack of BM since admission. Pt would benefit from corpak tube feeding versus TPN, discussed at rounds 12/11, however with patient's confused state putting a corpak may not be feasible. Recommend to continue the TPN for nutrition until patient is able to eat >65% of pureed diet or able to put corpak for TF. Receiving electrolyte replacement per protocol. No BM since admission, MD is aware, receiving reglan, relistor, and milk of magnesia prn 12/14. Will continue to monitor. Rec: 1. TPN per MD via central line using Clinimix non-E 5/15 2L bag at 115ml/hr goal. Initiate at 30ml/hr and if tolerated advance Q12 to goal.Change to Clinimix E pending MD approval w/ higher chance of refeeding syndrome given non-E and total volume required based on pt needs. 2. Separate lipid infusions using 96ml 20% intralipids to run Q12 daily at 8ml/hr. 3. In total; to provide 2760ml fluid, 138g AA, 414g DEX (3.43mg/kg/min), and 1598 total non-protein kcals. 3. prealbumin Q /; daily wts 4. continue opioid antagonist and promotility agent 5. continue routine bowel care 6. Continue pureed diet with nectar thick liquid per ROUTE SERVICE REPRESENTATIVE recs Addendum: 12/14/18 at [address] Amended: Links added.
--- NOTE | 2018-12-14 13:00 | NUR ---
up with Pt with sit to stand for 4" then to chair x 2 hrs.tolerated well.
[2018-12-14] MEDS: Trace element-5 inj. 1 ML in amino acid 5%/D15W 2,000 ML IV SCH (15:01)
[2018-12-14 16:58] LABS: ALBUMIN 2.8 G/DL (3.4-5.0); ANION GAP 6 (8-16); BLOOD UREA NITROGEN 69 MG/DL (7-18); BUN/CREATININE RATIO 44.2 (5.4-32.0); CALCIUM 7.7 MG/DL (8.5-10.1); CHLORIDE 90 MMOL/L (99-107); CREATININE 1.56 MG/DL (0.60-1.10); GLUCOSE 118 MG/DL (70-104); MAGNESIUM 1.5 MG/DL (1.5-2.4); PHOSPHORUS 2.1 MG/DL (2.3-4.5); SODIUM 128 MMOL/L (135-145); TOTAL CARBON DIOXIDE 32.1 MMOL/L (24-32); eGFR 42 ML/MIN
--- NOTE | 2018-12-14 18:14 | NUR ---
pt took a few bites of lunch- not tasting well for pt. visitors in and out- pt awakens and speaks some- joking manner
[2018-12-14] MEDS: furosemide 40mg/4ml inj IV SCH (20:00)
[2018-12-14] MEDS: insulin glargine (Lantus) pen - multi-dose SQ SCH (21:00)
[2018-12-14] MEDS: ROPINIRole 0.25mg tablet PO SCH (21:18)
[2018-12-14] MEDS: fat emulsion IV bag 250 ML IV SCH (21:18)
--- NOTE | 2018-12-14 22:12 | NUR ---
RN Note -Dinner/PO meds Pt ate almost 25% of dinner with assist from family including a cup of thickened decaf coffee. Was able to take Coreg and Requip but refused culturelle and MOM.
[2018-12-15] VITALS (24 sets, daily range): BP systolic 119–151; BP diastolic 42–62
[2018-12-15] MEDS: metoclopramide 5 mg/ml inj IV SCH (02:00)
[2018-12-15] MEDS ORDERED: VANCOMYCIN LEVEL IV ONE (02:30)
[2018-12-15] MEDS: ipratropium/albuterol 3ml nebule NEB SCH ×4 (03:48→20:43)
[2018-12-15 05:24] LABS: BASOPHILS % (AUTO) 0.3 % (0-1); EOSINOPHILS # (AUTO) 0.3 X10'3 (0-0.9); EOSINOPHILS % (AUTO) 2.8 % (0-6); HEMATOCRIT 23.4 % (42.0-52.0); LYMPHOCYTES # (AUTO) 0.6 X10'3 (1.1-4.8); LYMPHOCYTES % (AUTO) 4.6 % (21-51); MEAN CORPUSCULAR HEMOGLOBIN 31.4 PG (27.0-31.0); MEAN CORPUSCULAR HGB CONC 34.3 g/dL (33.0-36.5); MEAN CORPUSCULAR VOLUME 91.6 FL (78-98); MEAN PLATELET VOLUME 8.5 FL (7.4-10.4); MONOCYTES # (AUTO) 1.3 X10'3 (0-0.9); MONOCYTES % (AUTO) 10.5 % (2-12); NEUTROPHILS # (AUTO) 10.2 X10'3 (1.8-7.7); NEUTROPHILS % (AUTO) 81.8 % (42-75); PLATELET COUNT 205 X10'3 (140-440); RED BLOOD COUNT 2.56 X10'6 (4.70-6.10); RED CELL DISTRIBUTION WIDTH 15.2 % (11.5-14.5); WHITE BLOOD COUNT 12.5 X10'3 (4.5-11.0)
[2018-12-15 05:32] LABS: PARTIAL THROMBOPLASTIN TIME 32 SECONDS (22-32)
[2018-12-15 05:40] LABS: ALANINE AMINOTRANSFERASE 16 U/L (12-78); ALBUMIN 2.9 G/DL (3.4-5.0); ALBUMIN/GLOBULIN RATIO 0.8 (1.1-1.5); ALKALINE PHOSPHATASE 78 IU/L (46-116); ANION GAP 11 (8-16); ASPARTATE AMINO TRANSFERASE 24 U/L (10-37); BILIRUBIN,TOTAL 0.8 MG/DL (0.1-1.0); BLOOD UREA NITROGEN 72 MG/DL (7-18); BUN/CREATININE RATIO 44.7 (5.4-32.0); CALCIUM 7.7 MG/DL (8.5-10.1); CHLORIDE 88 MMOL/L (99-107); CREATININE 1.61 MG/DL (0.60-1.10); GLUCOSE 122 MG/DL (70-104); MAGNESIUM 1.3 MG/DL (1.5-2.4); PHOSPHORUS 1.7 MG/DL (2.3-4.5); SODIUM 129 MMOL/L (135-145); TOTAL CARBON DIOXIDE 30.4 MMOL/L (24-32); TOTAL PROTEIN 6.5 G/DL (6.4-8.2); VANCOMYCIN,TROUGH 15.5 UG/ML (6.0-14.0); eGFR 41 ML/MIN
[2018-12-15 06:11] LABS: POTASSIUM 2.8 MMOL/L (3.5-5.1)
[2018-12-15 06:17] LABS: ANISOCYTOSIS 1+; HYPOCHROMASIA 1+; PLATELET ESTIMATE NORMAL; POIKILOCYTOSIS 1+; POLYCHROMASIA 1+; TOTAL CELLS COUNTED 100; TOXIC GRANULATION 1+
[2018-12-15] MEDS: levoTHYROXINE 75mcg tablet PO SCH (07:00)
[2018-12-15] MEDS: carVEDilol 3.125mg tablet PO SCH ×2 (08:00→20:00)
[2018-12-15] MEDS: magnesium hydroxide 30ml (MOM) UD suspension PO SCH ×2 (08:00→20:00)
[2018-12-15] MEDS: lactobacillus rhamnosus 10,000 MMU CELLS/CAPSULE OGT SCH ×2 (08:00→20:00)
[2018-12-15] MEDS: aspirin 81mg tab.chew PO SCH (08:00)
[2018-12-15] MEDS: ESCITALOPRAM OXALATE 5 MG TABLET PO SCH (08:00)
[2018-12-15] MEDS: amiodarone 200mg tablet PO SCH (08:00)
--- NOTE | 2018-12-15 09:02 | NUR ---
Reassessment: Per MD patient needs more sodium in TPN, discussed at rounds with pharmacy, pharmacy to manage. Patient continues on TPN to meet nutrition needs. No BM since admission. Per bedside nurse he is passing gas. TPN at goal rate of 115 ml/hr. Also on pureed diet but is unable to eat meals possibly d/t shortness of breath. Patient is also edematous. Poor appetite. Consistently refusing meals. Patient is confused. Refusal of meals likely r/t poor appetite d/t short of breath, confusion, and lack of BM since admission. Pt would benefit from corpak tube feeding versus TPN, discussed at rounds 12/11, however with patient's confused state putting a corpak may not be feasible. Recommend to continue the TPN for nutrition until patient is able to eat >65% of pureed diet or able to put corpak for TF. Receiving electrolyte replacement per protocol. No BM since admission, MD is aware, receiving reglan, relistor, and milk of magnesia prn 12/14. Will continue to monitor. Rec: 1. TPN per MD via central line using Clinimix E 5/15 2L bag at 115ml/hr goal. Initiate at 30ml/hr and if tolerated advance Q12 to goal.Change to Clinimix E pending MD approval w/ higher chance of refeeding syndrome given non-E and total volume required based on pt needs. 2. Separate lipid infusions using 96ml 20% intralipids to run Q12 daily at 8ml/hr. 3. In total; to provide 2760ml fluid, 138g AA, 414g DEX (3.43mg/kg/min), and 1598 total non-protein kcals. 3. prealbumin Q /; daily wts 4. continue opioid antagonist and promotility agent 5. continue routine bowel care 6. Continue pureed diet with nectar thick liquid per LAND COMMISSIONER recs Addendum: 12/15/18 at [address] Amended: Links added.
[2018-12-15] MEDS: [UNRECOGNIZED DRUG - NUTRITION] IV SCH (09:31)
[2018-12-15] MEDS: MVI, adult No.4 with vit. K 10 ML in dextrose 5% water 500ml 500 ML IV SCH ×2 (09:32)
[2018-12-15] MEDS: albumin (human) 25% 100ml IV 100 ML IV SCH ×2 (09:33)
[2018-12-15] MEDS: sodium phosphate inj. 15 MMOL in dextrose 5%-water 150 ML IV PRN ×2 (09:39→10:40)
[2018-12-15] MEDS: piperacillin/tazo 4.5gm/100ml 100 ML IV SCH ×2 (09:39)
[2018-12-15] MEDS: magnesium 4gm in 100ml NS 100 ML IV PRN (09:40)
[2018-12-15] MEDS: potassium Cl 20mEq/100mL bag 100 ML IV PRN ×3 (10:26→19:58)
[2018-12-15] MEDS: pantoprazole 40 MG vial IV SCH (10:52)
[2018-12-15] MEDS: heparin, porcine 5000 units/ml vial SQ SCH ×2 (10:52→20:59)
[2018-12-15] MEDS: furosemide 40mg/4ml inj IV SCH (13:55)
[2018-12-15] MEDS: piperacillin/tazo 3.375gm/50ml 50 ML IV SCH (16:00)
[2018-12-15 19:36] LABS: ABG BASE EXCESS 5.2 mmol/L (-2.0-3.0); ABG HCO3 28.4 mmol/L (22.0-26.0); ABG OXYGEN SATURATION 93.4 % (95-98); ABG PCO2 (T) 37.8 mmHg (35.0-45.0); ABG PH (T) 7.498 (7.350-7.450); ABG PO2 (T) 68.2 mmHg (83-108); FCOHb 0.2 % (0.5-1.5); FMetHb 0.3 % (0.3-1.12); FO2Hb 92.9 % (94-100); RESPIRATORY RATE (OBSERVED) 16 b/min; TOTAL HEMOGLOBIN 9.5 G/dl (14.0-17.9)
[2018-12-15 20:04] LABS: BASOPHILS # (AUTO) 0.1 X10'3 (0-0.2); BASOPHILS % (AUTO) 0.4 % (0-1); EOSINOPHILS # (AUTO) 0.3 X10'3 (0-0.9); EOSINOPHILS % (AUTO) 2.1 % (0-6); HEMATOCRIT 25.4 % (42.0-52.0); HEMOGLOBIN 8.7 g/dl (14.0-17.9); LYMPHOCYTES # (AUTO) 0.8 X10'3 (1.1-4.8); LYMPHOCYTES % (AUTO) 5.7 % (21-51); MEAN CORPUSCULAR HEMOGLOBIN 31.3 PG (27.0-31.0); MEAN CORPUSCULAR HGB CONC 34.3 g/dL (33.0-36.5); MEAN CORPUSCULAR VOLUME 91.2 FL (78-98); MEAN PLATELET VOLUME 7.5 FL (7.4-10.4); MONOCYTES # (AUTO) 1.7 X10'3 (0-0.9); MONOCYTES % (AUTO) 12.9 % (2-12); NEUTROPHILS # (AUTO) 10.5 X10'3 (1.8-7.7); NEUTROPHILS % (AUTO) 78.9 % (42-75); PLATELET COUNT 231 X10'3 (140-440); RED BLOOD COUNT 2.79 X10'6 (4.70-6.10); RED CELL DISTRIBUTION WIDTH 15.3 % (11.5-14.5); WHITE BLOOD COUNT 13.3 X10'3 (4.5-11.0)
[2018-12-15 20:21] LABS: ALANINE AMINOTRANSFERASE 22 U/L (12-78); ALBUMIN/GLOBULIN RATIO 0.8 (1.1-1.5); ALKALINE PHOSPHATASE 91 IU/L (46-116); ASPARTATE AMINO TRANSFERASE 29 U/L (10-37); BLOOD UREA NITROGEN 78 MG/DL (7-18); BUN/CREATININE RATIO 44.6 (5.4-32.0); CALCIUM 8.6 MG/DL (8.5-10.1); CREATININE 1.75 MG/DL (0.60-1.10); GLUCOSE 119 MG/DL (70-104); MAGNESIUM 2.5 MG/DL (1.5-2.4); PHOSPHORUS 4.2 MG/DL (2.3-4.5); TOTAL CARBON DIOXIDE 31.7 MMOL/L (24-32); TOTAL PROTEIN 6.9 G/DL (6.4-8.2); eGFR 37 ML/MIN
[2018-12-15 20:26] LABS: ANION GAP 9 (8-16); CHLORIDE 88 MMOL/L (99-107); POTASSIUM 3.2 MMOL/L (3.5-5.1); SODIUM 129 MMOL/L (135-145)
[2018-12-15] MEDS: ROPINIRole 0.25mg tablet PO SCH (20:35)
[2018-12-15] MEDS: insulin glargine (Lantus) pen - multi-dose SQ SCH (20:35)
[2018-12-15] MEDS: fat emulsion IV bag 250 ML IV SCH (20:57)
[2018-12-16] VITALS (24 sets, daily range): BP systolic 99–153; BP diastolic 37–65
[2018-12-16] MEDS: piperacillin/tazo 3.375gm/50ml 50 ML IV SCH ×3 (00:25→16:06)
[2018-12-16] MEDS: acetaminophen 325mg tablet PO PRN (00:26)
[2018-12-16] MEDS: potassium Cl 20mEq/100mL bag 100 ML IV PRN ×3 (00:26→11:25)
[2018-12-16] MEDS: ipratropium/albuterol 3ml nebule NEB SCH ×4 (03:36→20:29)
[2018-12-16 04:25] LABS: PARTIAL THROMBOPLASTIN TIME 34 SECONDS (22-32)
[2018-12-16 04:27] LABS: ALANINE AMINOTRANSFERASE 24 U/L (12-78); ALBUMIN 2.7 G/DL (3.4-5.0); ALBUMIN/GLOBULIN RATIO 0.7 (1.1-1.5); ALKALINE PHOSPHATASE 94 IU/L (46-116); ANION GAP 8 (8-16); ASPARTATE AMINO TRANSFERASE 33 U/L (10-37); BLOOD UREA NITROGEN 81 MG/DL (7-18); CHLORIDE 91 MMOL/L (99-107); GLUCOSE 144 MG/DL (70-104); MAGNESIUM 2.2 MG/DL (1.5-2.4); POTASSIUM 3.5 MMOL/L (3.5-5.1); SODIUM 130 MMOL/L (135-145); TOTAL CARBON DIOXIDE 31.1 MMOL/L (24-32); TOTAL PROTEIN 6.5 G/DL (6.4-8.2); eGFR 36 ML/MIN
[2018-12-16 04:29] LABS: BASOPHILS # (AUTO) 0.1 X10'3 (0-0.2); BASOPHILS % (AUTO) 0.4 % (0-1); EOSINOPHILS # (AUTO) 0.2 X10'3 (0-0.9); HEMOGLOBIN 8.5 g/dl (14.0-17.9); LYMPHOCYTES # (AUTO) 0.7 X10'3 (1.1-4.8); LYMPHOCYTES % (AUTO) 5.8 % (21-51); MEAN CORPUSCULAR HEMOGLOBIN 31.4 PG (27.0-31.0); MEAN CORPUSCULAR HGB CONC 34.2 g/dL (33.0-36.5); MEAN CORPUSCULAR VOLUME 91.6 FL (78-98); MEAN PLATELET VOLUME 7.8 FL (7.4-10.4); MONOCYTES # (AUTO) 1.7 X10'3 (0-0.9); MONOCYTES % (AUTO) 14.1 % (2-12); NEUTROPHILS # (AUTO) 9.4 X10'3 (1.8-7.7); NEUTROPHILS % (AUTO) 77.7 % (42-75); PLATELET COUNT 223 X10'3 (140-440); RED BLOOD COUNT 2.73 X10'6 (4.70-6.10); RED CELL DISTRIBUTION WIDTH 15.5 % (11.5-14.5); WHITE BLOOD COUNT 12.1 X10'3 (4.5-11.0)
[2018-12-16] MEDS: [UNRECOGNIZED DRUG - NUTRITION] IV SCH ×2 (05:01→22:11)
--- NOTE | 2018-12-16 05:37 | NUR ---
RN Note -Shift Summary Pt LOC has been labile, Pt is mostly sleepy and slow to respond. ABG normal, labs unremarkable. Phil Castro evaluated at bedside, no new orders. Still no bowel movement, passing lots of gas.
[2018-12-16 07:13] LABS: ANISOCYTOSIS 1+; PLATELET ESTIMATE NORMAL; TOTAL CELLS COUNTED 100
[2018-12-16] MEDS: methylnaltrexone br 12mg/0.6ml inj***SubQ only SQ SCH (07:20)
[2018-12-16] MEDS: pantoprazole 40 MG vial IV SCH (07:20)
[2018-12-16] MEDS: MVI, adult No.4 with vit. K 10 ML in dextrose 5% water 500ml 500 ML IV SCH ×2 (07:25)
[2018-12-16] MEDS: heparin, porcine 5000 units/ml vial SQ SCH ×2 (07:25→20:49)
[2018-12-16] MEDS: magnesium hydroxide 30ml (MOM) UD suspension PO SCH ×2 (07:25→20:00)
[2018-12-16] MEDS: aspirin 81mg tab.chew PO SCH (07:27)
[2018-12-16] MEDS: carVEDilol 3.125mg tablet PO SCH ×2 (07:27→20:00)
[2018-12-16] MEDS: lactobacillus rhamnosus 10,000 MMU CELLS/CAPSULE OGT SCH ×2 (07:27→20:00)
[2018-12-16] MEDS: amiodarone 200mg tablet PO SCH (07:27)
[2018-12-16] MEDS: ESCITALOPRAM OXALATE 5 MG TABLET PO SCH (07:27)
[2018-12-16] MEDS: levoTHYROXINE 75mcg tablet PO SCH (07:27)
[2018-12-16] MEDS: furosemide 40mg/4ml inj IV SCH (07:34)
[2018-12-16] MEDS: insulin glargine (Lantus) pen - multi-dose SQ SCH (20:32)
[2018-12-16] MEDS: fat emulsion IV bag 250 ML IV SCH (20:48)
[2018-12-16] MEDS: ROPINIRole 0.25mg tablet PO SCH (20:49)
[2018-12-17] VITALS (24 sets, daily range): BP systolic 99–137; BP diastolic 32–65
[2018-12-17] MEDS: piperacillin/tazo 3.375gm/50ml 50 ML IV SCH ×4 (00:43→23:40)
[2018-12-17] MEDS: ipratropium/albuterol 3ml nebule NEB SCH ×4 (02:56→20:04)
[2018-12-17 04:15] LABS: PARTIAL THROMBOPLASTIN TIME 29 SECONDS (22-32)
[2018-12-17 04:16] LABS: % IRON SATURATION 15 % (11-46); IRON 22 UG/DL (53-167); TOTAL IRON BINDING CAPACITY 148 UG/DL (259-388)
[2018-12-17 04:23] LABS: ALANINE AMINOTRANSFERASE 61 U/L (12-78); ALBUMIN 2.5 G/DL (3.4-5.0); ALBUMIN/GLOBULIN RATIO 0.6 (1.1-1.5); ALKALINE PHOSPHATASE 130 IU/L (46-116); ANION GAP 6 (8-16); ASPARTATE AMINO TRANSFERASE 78 U/L (10-37); BILIRUBIN,TOTAL 0.9 MG/DL (0.1-1.0); BLOOD UREA NITROGEN 79 MG/DL (7-18); BUN/CREATININE RATIO 48.8 (5.4-32.0); CALCIUM 8.3 MG/DL (8.5-10.1); CHLORIDE 94 MMOL/L (99-107); CREATININE 1.62 MG/DL (0.60-1.10); GLUCOSE 131 MG/DL (70-104); MAGNESIUM 2.1 MG/DL (1.5-2.4); PHOSPHORUS 4.2 MG/DL (2.3-4.5); POTASSIUM 3.4 MMOL/L (3.5-5.1); SODIUM 133 MMOL/L (135-145); TOTAL CARBON DIOXIDE 32.9 MMOL/L (24-32); TOTAL PROTEIN 6.7 G/DL (6.4-8.2); eGFR 40 ML/MIN
--- NOTE | 2018-12-17 06:45 | NUR ---
Patient in room CICU 2009. I have received report from MAC RN and had the opportunity to ask questions and assume patient care. Patient laying in bed with eyes closed, TPN infusing to R Picc, vital signs stable will continue to monitor
[2018-12-17 07:47] LABS: TOTAL CELLS COUNTED 100
[2018-12-17 07:48] LABS: ANISOCYTOSIS 1+; PLATELET ESTIMATE NORMAL; TOXIC GRANULATION 1+
[2018-12-17 07:49] LABS: HYPOCHROMASIA 1+; POLYCHROMASIA 1+
[2018-12-17] MEDS: furosemide 40mg/4ml inj IV SCH ×2 (07:57→08:00)
[2018-12-17] MEDS: pantoprazole 40 MG vial IV SCH (07:57)
[2018-12-17] MEDS: ESCITALOPRAM OXALATE 5 MG TABLET PO SCH (08:00)
[2018-12-17 08:02] LABS: HEMATOCRIT 24.9 % (42.0-52.0); HEMOGLOBIN 8.5 g/dl (14.0-17.9); RED BLOOD COUNT 2.72 X10'6 (4.70-6.10); WHITE BLOOD COUNT 13.8 X10'3 (4.5-11.0)
[2018-12-17 08:03] LABS: BASOPHILS # (AUTO) 0.1 X10'3 (0-0.2); BASOPHILS % (AUTO) 0.4 % (0-1); EOSINOPHILS # (AUTO) 0.3 X10'3 (0-0.9); LYMPHOCYTES # (AUTO) 0.9 X10'3 (1.1-4.8); LYMPHOCYTES % (AUTO) 6.2 % (21-51); MEAN CORPUSCULAR HEMOGLOBIN 31.3 PG (27.0-31.0); MEAN CORPUSCULAR HGB CONC 34.1 g/dL (33.0-36.5); MEAN CORPUSCULAR VOLUME 91.7 FL (78-98); MEAN PLATELET VOLUME 7.8 FL (7.4-10.4); MONOCYTES % (AUTO) 14.2 % (2-12); NEUTROPHILS # (AUTO) 10.6 X10'3 (1.8-7.7); NEUTROPHILS % (AUTO) 77.2 % (42-75); PLATELET COUNT 245 X10'3 (140-440); RED CELL DISTRIBUTION WIDTH 15.3 % (11.5-14.5)
[2018-12-17] MEDS: heparin, porcine 5000 units/ml vial SQ SCH ×2 (08:10→20:49)
[2018-12-17] MEDS: potassium Cl 20mEq/100mL bag 100 ML IV PRN ×2 (08:14→09:36)
[2018-12-17] MEDS: MVI, adult No.4 with vit. K 10 ML in dextrose 5% water 500ml 500 ML IV SCH ×2 (08:14)
--- NOTE | 2018-12-17 10:00 | NUR ---
patients family at bedside, patient more awake and conversing with patient. Patient taking in some of is hot cereal, he is swallowing with no issues. I was able to get some of his meds into him. Vital signs stable will continue to monitor
--- NOTE | 2018-12-17 10:37 | NUR ---
reassessment: Pt PO diet has been accidentally cancelled; SEUN d/w RN who is entering new pureed/NTL diet currently. Pt unable to swallow meds today per RN but is able to tolerate some PO while family present encourages. Currently tolerating TPN at goal. Pt passing gas per MD note but NO BM 15 DAYS; reglan never given r/t additional sedation concerns per MD note. Pt has only received relistor and no routine bowel care w/ severe constipation. Per engine builder bowel care per surgeon recs; SEUN d/w RN for routine bowel care per surgeon approval. Pt likely low PO given severe constipation. Will continue to monitor. Rec: 1. TPN per MD via central line using Clinimix E 5/15 2L bag at 115ml/hr goal. Initiate at 30ml/hr and if tolerated advance Q12 to goal.Change to Clinimix E pending MD approval w/ higher chance of refeeding syndrome given non-E and total volume required based on pt needs. 2. Separate lipid infusions using 96ml 20% intralipids to run Q12 daily at 8ml/hr. 3. In total; to provide 2760ml fluid, 138g AA, 414g DEX (3.43mg/kg/min), and 1598 total non-protein kcals. 3. prealbumin Q /; daily wts 4. continue opioid antagonist 5. routine bowel care per MD given constipation 6. Continue pureed diet with nectar thick liquid per GREENHOUSE TRANSPLANTER recs Addendum: 12/17/18 at [address] Amended: Links added.
[2018-12-17] MEDS: carVEDilol 3.125mg tablet PO SCH ×2 (10:49→21:04)
[2018-12-17] MEDS: levoTHYROXINE 75mcg tablet PO SCH (10:49)
[2018-12-17] MEDS: amiodarone 200mg tablet PO SCH (10:49)
[2018-12-17] MEDS: magnesium hydroxide 30ml (MOM) UD suspension PO SCH ×2 (10:50→20:00)
[2018-12-17] MEDS: aspirin 81mg tab.chew PO SCH (10:50)
[2018-12-17] MEDS: lactobacillus rhamnosus 10,000 MMU CELLS/CAPSULE OGT SCH ×2 (10:50→21:03)
--- NOTE | 2018-12-17 13:00 | NUR ---
Dr. Rosa by, updated him on the patients progress, he stated that he will peg him and send him to [facility].
[2018-12-17] MEDS: [UNRECOGNIZED DRUG - NUTRITION] IV SCH (15:04)
--- NOTE | 2018-12-17 18:15 | NUR ---
Patient in room CICU 2009. I have received report from Darby Ruth RN and had the opportunity to ask questions and assume patient care. Pt resting in bed on room air with spo2 at 98%, IV fluids infusing per provider orders, all monitoring alarms audible, see interventions. Will continue to monitor.
--- NOTE | 2018-12-17 18:18 | NUR ---
Problems reprioritized. Patient report given, questions answered & plan of care reviewed with Ruchi NASCIMENTO.
[2018-12-17] MEDS: fat emulsion IV bag 250 ML IV SCH (20:49)
[2018-12-17] MEDS: insulin glargine (Lantus) pen - multi-dose SQ SCH (21:00)
[2018-12-17] MEDS: ROPINIRole 0.25mg tablet PO SCH (21:03)
[2018-12-18] VITALS (23 sets, daily range): BP systolic 105–137; BP diastolic 32–60
[2018-12-18 02:59] LABS: PARTIAL THROMBOPLASTIN TIME 31 SECONDS (22-32)
[2018-12-18 03:00] LABS: BASOPHILS # (AUTO) 0.1 X10'3 (0-0.2); BASOPHILS % (AUTO) 0.6 % (0-1); EOSINOPHILS # (AUTO) 0.3 X10'3 (0-0.9); EOSINOPHILS % (AUTO) 2.8 % (0-6); HEMATOCRIT 24.3 % (42.0-52.0); HEMOGLOBIN 8.1 g/dl (14.0-17.9); LYMPHOCYTES # (AUTO) 0.8 X10'3 (1.1-4.8); LYMPHOCYTES % (AUTO) 6.6 % (21-51); MEAN CORPUSCULAR HEMOGLOBIN 30.8 PG (27.0-31.0); MEAN CORPUSCULAR HGB CONC 33.4 g/dL (33.0-36.5); MEAN CORPUSCULAR VOLUME 92.1 FL (78-98); MEAN PLATELET VOLUME 7.5 FL (7.4-10.4); MONOCYTES # (AUTO) 1.3 X10'3 (0-0.9); MONOCYTES % (AUTO) 11.3 % (2-12); NEUTROPHILS # (AUTO) 9.3 X10'3 (1.8-7.7); NEUTROPHILS % (AUTO) 78.7 % (42-75); PLATELET COUNT 242 X10'3 (140-440); RED BLOOD COUNT 2.64 X10'6 (4.70-6.10); RED CELL DISTRIBUTION WIDTH 15.5 % (11.5-14.5); WHITE BLOOD COUNT 11.8 X10'3 (4.5-11.0)
[2018-12-18 03:01] LABS: ALANINE AMINOTRANSFERASE 109 U/L (12-78); ALBUMIN 2.3 G/DL (3.4-5.0); ALBUMIN/GLOBULIN RATIO 0.5 (1.1-1.5); ALKALINE PHOSPHATASE 156 IU/L (46-116); ANION GAP 5 (8-16); ASPARTATE AMINO TRANSFERASE 127 U/L (10-37); BILIRUBIN,TOTAL 0.8 MG/DL (0.1-1.0); BLOOD UREA NITROGEN 73 MG/DL (7-18); CHLORIDE 98 MMOL/L (99-107); CREATININE 1.46 MG/DL (0.60-1.10); GLUCOSE 143 MG/DL (70-104); MAGNESIUM 2.1 MG/DL (1.5-2.4); POTASSIUM 4.1 MMOL/L (3.5-5.1); PREALBUMIN 15.1 MG/DL (19-36); SODIUM 135 MMOL/L (135-145); TOTAL CARBON DIOXIDE 32.2 MMOL/L (24-32); TOTAL PROTEIN 6.5 G/DL (6.4-8.2); TRIGLYCERIDES 37 MG/DL (20-135); eGFR 45 ML/MIN
[2018-12-18] MEDS: ipratropium/albuterol 3ml nebule NEB SCH ×4 (03:23→20:51)
--- NOTE | 2018-12-18 06:20 | NUR ---
Problems reprioritized. Patient report given, questions answered & plan of care reviewed with Darby Ruth RN.
--- NOTE | 2018-12-18 06:34 | NUR ---
Student documentation: I have reviewed and agree with all interventions, assessments performed and documented by Lawrence NASCIMENTO. Student Medication Administration: For this medication-pass time frame, all medication were reviewed, dispensed, administered and documented per hospital policy by Lawrence NASCIMENTO. Addendum: 12/18/18 at 2338 by Ruchi Mixon RN Correction: Lawrence is ADN student not RN.
--- NOTE | 2018-12-18 06:40 | NUR ---
Patient in room CICU 2009. I have received report from PILY Hopper and had the opportunity to ask questions and assume patient care.
[2018-12-18 06:42] LABS: TOTAL CELLS COUNTED 100
[2018-12-18 06:43] LABS: PLATELET ESTIMATE NORMAL
[2018-12-18] MEDS: levoTHYROXINE 75mcg tablet PO SCH (07:00)
[2018-12-18] MEDS: piperacillin/tazo 3.375gm/50ml 50 ML IV SCH ×2 (07:16→15:56)
[2018-12-18] MEDS: pantoprazole 40 MG vial IV SCH (07:16)
[2018-12-18] MEDS: heparin, porcine 5000 units/ml vial SQ SCH ×2 (07:17→19:25)
[2018-12-18] MEDS: MVI, adult No.4 with vit. K 10 ML in dextrose 5% water 500ml 500 ML IV SCH ×2 (07:17)
[2018-12-18] MEDS: magnesium hydroxide 30ml (MOM) UD suspension PO SCH ×2 (08:00→19:35)
[2018-12-18] MEDS: lactobacillus rhamnosus 10,000 MMU CELLS/CAPSULE OGT SCH ×2 (08:00→19:25)
[2018-12-18] MEDS: aspirin 81mg tab.chew PO SCH (08:00)
[2018-12-18] MEDS: amiodarone 200mg tablet PO SCH (08:00)
[2018-12-18] MEDS: ESCITALOPRAM OXALATE 5 MG TABLET PO SCH (08:00)
[2018-12-18] MEDS: carVEDilol 3.125mg tablet PO SCH ×2 (08:00→19:25)
[2018-12-18] MEDS: [UNRECOGNIZED DRUG - NUTRITION] IV SCH (09:25)
[2018-12-18] MEDS ORDERED: amiodarone 200mg tablet PEG SCH (11:37)
[2018-12-18] MEDS ORDERED: amiodarone 200mg tablet PO SCH (11:37)
[2018-12-18] MEDS ORDERED: acetaminophen 325mg tablet PEG PRN (11:37)
[2018-12-18] MEDS ORDERED: acetaminophen 325mg tablet PO PRN (11:37)
--- NOTE | 2018-12-18 16:28 | NUR ---
IR tried to place NG tube x3 without success. IR recommended that we try to get GI to place it. upon the RN talking to Dr. Garcia he said that he would perform the PEG procedure tomorrow to forgo needing NG tube placement and contrast being given tonight. Dr. Garcia told the RN it would probably be sometime in the AM but didn't have a time yet.
--- NOTE | 2018-12-18 18:28 | NUR ---
Problems reprioritized. Patient report given, questions answered & plan of care reviewed with PILY Sesay.
--- NOTE | 2018-12-18 18:32 | NUR ---
Patient in room CICU 2009. I have received report from Berta NASCIMENTO and had the opportunity to ask questions and assume patient care. Patient resting in bed comfortably, in no apparent distress and offers no complaints at this time. HR in low 80s and is v-paced. BP 132/54 via automatic cuff. Patient alert, oriented x3. Will continue to monitor patient.
[2018-12-18] MEDS: insulin glargine (Lantus) pen - multi-dose SQ SCH (20:05)
[2018-12-18] MEDS: fat emulsion IV bag 250 ML IV SCH (20:14)
[2018-12-18] MEDS: ROPINIRole 0.25mg tablet PO SCH (20:14)
--- NOTE | 2018-12-18 21:03 | NUR ---
Attempted MetaNeb with pt. First tried the mouth piece attachment that was already in place, however pt is not following instruction and is unable to seal mouth around mouth piece. Also attempted to use the mask, but pt pressures are only between 0-5 (15-20 needed for effective metaneb treatment) and pt shakes his head, then swats at the mask. Finally I just tried to get him to take it as a regular breathing treatment, aerosol only, but he kept shaking his head and telling me "no". Treatment stopped, will monitor and attempt again with his 0 treatment. Addendum: 12/18/18 at 2107 by Isela Reeder RT Amended: Links added.
[2018-12-18] MEDS ORDERED: diatr meglu/diatrizoate 30ml oral sol.-(3 dose) bottle NG ONE (22:00)
[2018-12-19] VITALS (28 sets, daily range): BP systolic 93–167; BP diastolic 40–95
[2018-12-19] MEDS: piperacillin/tazo 3.375gm/50ml 50 ML IV SCH ×3 (01:23→17:19)
[2018-12-19] MEDS: [UNRECOGNIZED DRUG - NUTRITION] IV SCH ×2 (02:25→19:30)
[2018-12-19] MEDS: ipratropium/albuterol 3ml nebule NEB SCH ×4 (03:00→20:33)
[2018-12-19 03:04] LABS: BASOPHILS # (AUTO) 0.1 X10'3 (0-0.2); BASOPHILS % (AUTO) 1.1 % (0-1); EOSINOPHILS # (AUTO) 0.3 X10'3 (0-0.9); EOSINOPHILS % (AUTO) 2.6 % (0-6); HEMATOCRIT 24.1 % (42.0-52.0); HEMOGLOBIN 8.2 g/dl (14.0-17.9); LYMPHOCYTES # (AUTO) 0.8 X10'3 (1.1-4.8); LYMPHOCYTES % (AUTO) 7.4 % (21-51); MEAN CORPUSCULAR HGB CONC 33.9 g/dL (33.0-36.5); MEAN CORPUSCULAR VOLUME 91.5 FL (78-98); MEAN PLATELET VOLUME 7.5 FL (7.4-10.4); MONOCYTES # (AUTO) 1.4 X10'3 (0-0.9); MONOCYTES % (AUTO) 12.4 % (2-12); NEUTROPHILS # (AUTO) 8.7 X10'3 (1.8-7.7); NEUTROPHILS % (AUTO) 76.5 % (42-75); PLATELET COUNT 268 X10'3 (140-440); RED BLOOD COUNT 2.63 X10'6 (4.70-6.10); RED CELL DISTRIBUTION WIDTH 15.4 % (11.5-14.5); WHITE BLOOD COUNT 11.4 X10'3 (4.5-11.0)
[2018-12-19 03:11] LABS: PARTIAL THROMBOPLASTIN TIME 28 SECONDS (22-32)
[2018-12-19 03:17] LABS: ALANINE AMINOTRANSFERASE 103 U/L (12-78); ALBUMIN 2.3 G/DL (3.4-5.0); ALBUMIN/GLOBULIN RATIO 0.5 (1.1-1.5); ALKALINE PHOSPHATASE 188 IU/L (46-116); ANION GAP 5 (8-16); ASPARTATE AMINO TRANSFERASE 101 U/L (10-37); BILIRUBIN,TOTAL 0.7 MG/DL (0.1-1.0); BLOOD UREA NITROGEN 66 MG/DL (7-18); BUN/CREATININE RATIO 44.9 (5.4-32.0); CALCIUM 8.3 MG/DL (8.5-10.1); CHLORIDE 98 MMOL/L (99-107); CREATININE 1.47 MG/DL (0.60-1.10); GLUCOSE 117 MG/DL (70-104); MAGNESIUM 2.1 MG/DL (1.5-2.4); PHOSPHORUS 4.2 MG/DL (2.3-4.5); POTASSIUM 4.3 MMOL/L (3.5-5.1); SODIUM 134 MMOL/L (135-145); TOTAL CARBON DIOXIDE 30.7 MMOL/L (24-32); TOTAL PROTEIN 6.8 G/DL (6.4-8.2); TRIGLYCERIDES 40 MG/DL (20-135); eGFR 45 ML/MIN
[2018-12-19 03:47] LABS: NUCLEATED RED BLOOD CELLS 1 /100WBC (0-0); TOTAL CELLS COUNTED 100
[2018-12-19 03:48] LABS: PLATELET ESTIMATE NORMAL
--- NOTE | 2018-12-19 06:32 | NUR ---
Problems reprioritized. Patient report given, questions answered & plan of care reviewed with Emily NASCIMENTO.
[2018-12-19] MEDS: heparin, porcine 5000 units/ml vial SQ SCH ×2 (07:04→19:43)
[2018-12-19] MEDS ORDERED: MIDAZolam 5mg/5ml vial ONE (07:49)
[2018-12-19] MEDS ORDERED: fentaNYL/PF 50MCG/1 ML 2ML syringe ONE (07:49)
[2018-12-19] MEDS ORDERED: LIDOcaine Viscous 15ml cup ONE (07:49)
[2018-12-19] MEDS: MVI, adult No.4 with vit. K 10 ML in dextrose 5% water 500ml 500 ML IV SCH ×2 (07:53)
[2018-12-19] MEDS: pantoprazole 40 MG vial IV SCH (07:59)
[2018-12-19] MEDS: lactobacillus rhamnosus 10,000 MMU CELLS/CAPSULE OGT SCH ×2 (08:00→19:43)
--- NOTE | 2018-12-19 12:24 | NUR ---
TF Consult: Pt s/p PEG placement this AM; OK to start PEG feeds at 1400 is bowel sounds per RN relayed from GI MD. Pt has bowel sounds. Will initiate at 20ml/hr and monitor tolerance. IF tolerating PEG feeds will be able to wean TPN per MD. Pt had first significant BM since admit 12/18. Still refusing meals w/ concerns for aspiration prior to PEG. Will monitor for PEG feeding tolerance; recs below. Rec: 1. PEG feeds per MD using Vital AF at 75ml/hr goal; initiate at 20ml/hr and advance 20ml Q8 to goal as tolerated. To provide 1800ml fluid, 1458ml free water, 2160 kcals, and 135g protein. 2. Water flush per MD while on TPN; 200ml Q4 once TPN d/c. 3. TPN per MD via central line using Clinimix E 5/15 2L bag at 115ml/hr goal. Initiate at 30ml/hr and if tolerated advance Q12 to goal.Change to Clinimix E pending MD approval w/ higher chance of refeeding syndrome given non-E and total volume required based on pt needs. 4. Separate lipid infusions using 96ml 20% intralipids to run Q12 daily at 8ml/hr. 5. In total; to provide 2760ml fluid, 138g AA, 414g DEX (3.43mg/kg/min), and 1598 total non-protein kcals. 6. prealbumin Q /; daily wts 7. continue opioid antagonist; routine bowel care 8. Wean TPN as PEG feeds advance to goal IF EN tolerated Addendum: 12/19/18 at [address] Amended: Links added.
[2018-12-19] MEDS ORDERED: dextrose ORAL solution 15 GM/59 ML bottle PEG PRN ×2 (14:02→14:03)
[2018-12-19] MEDS ORDERED: POTASSIUM BICARB 20meq eff tab 20 MEQ TABLET.EFF PEG PRN ×2 (14:04→14:05)
[2018-12-19] MEDS ORDERED: Neutra Phos packet PEG PRN (14:04)
--- NOTE | 2018-12-19 16:00 | NUR ---
Tube feeding started; patient with positive bowel sounds all quadrants and passing gas. Tube feeding started per elementary supervisor recommendations per peg tube. Started at 20 mls per hour.
--- NOTE | 2018-12-19 18:30 | NUR ---
Patient in room CICU 2009. I have received report from Emily NASCIMENTO and had the opportunity to ask questions and assume patient care. Patient resting in bed with eyes closed, arouses to name but falls back asleep immediately. HR in low 80s AV paced, oxygen saturation at 97% on room air. PEG tube in place with TF running at 20 cc/hr. Will continue to monitor patient.
[2018-12-19] MEDS: carVEDilol 3.125mg tablet PEG SCH (19:43)
[2018-12-19] MEDS: ROPINIRole 0.25mg tablet PEG SCH (19:43)
[2018-12-19] MEDS: acetaminophen 325mg/10.15ml oral unit dose solution PEG PRN (19:44)
[2018-12-19] MEDS: magnesium hydroxide 30ml (MOM) UD suspension PEG SCH (20:00)
[2018-12-19] MEDS: fat emulsion IV bag 250 ML IV SCH (21:00)
[2018-12-19] MEDS: insulin glargine (Lantus) pen - multi-dose SQ SCH (21:00)
[2018-12-20] VITALS (24 sets, daily range): BP systolic 99–138; BP diastolic 43–75
[2018-12-20] MEDS: piperacillin/tazo 3.375gm/50ml 50 ML IV SCH (00:51)
[2018-12-20] MEDS: ipratropium/albuterol 3ml nebule NEB SCH ×4 (02:22→20:18)
[2018-12-20 03:12] LABS: BASOPHILS # (AUTO) 0.1 X10'3 (0-0.2); BASOPHILS % (AUTO) 0.7 % (0-1); EOSINOPHILS # (AUTO) 0.2 X10'3 (0-0.9); HEMOGLOBIN 8.1 g/dl (14.0-17.9); LYMPHOCYTES # (AUTO) 0.9 X10'3 (1.1-4.8); LYMPHOCYTES % (AUTO) 7.7 % (21-51); MEAN CORPUSCULAR HGB CONC 33.9 g/dL (33.0-36.5); MEAN CORPUSCULAR VOLUME 91.7 FL (78-98); MEAN PLATELET VOLUME 7.6 FL (7.4-10.4); MONOCYTES # (AUTO) 1.4 X10'3 (0-0.9); MONOCYTES % (AUTO) 11.3 % (2-12); NEUTROPHILS # (AUTO) 9.5 X10'3 (1.8-7.7); NEUTROPHILS % (AUTO) 78.3 % (42-75); PLATELET COUNT 245 X10'3 (140-440); RED BLOOD COUNT 2.62 X10'6 (4.70-6.10); RED CELL DISTRIBUTION WIDTH 15.7 % (11.5-14.5); WHITE BLOOD COUNT 12.1 X10'3 (4.5-11.0)
[2018-12-20 03:16] LABS: PARTIAL THROMBOPLASTIN TIME 31 SECONDS (22-32)
[2018-12-20 03:30] LABS: ALANINE AMINOTRANSFERASE 123 U/L (12-78); ALBUMIN 2.1 G/DL (3.4-5.0); ALBUMIN/GLOBULIN RATIO 0.5 (1.1-1.5); ALKALINE PHOSPHATASE 237 IU/L (46-116); ANION GAP 6 (8-16); ASPARTATE AMINO TRANSFERASE 133 U/L (10-37); BILIRUBIN,TOTAL 0.6 MG/DL (0.1-1.0); BLOOD UREA NITROGEN 64 MG/DL (7-18); BUN/CREATININE RATIO 43.2 (5.4-32.0); CALCIUM 8.9 MG/DL (8.5-10.1); CHLORIDE 97 MMOL/L (99-107); CREATININE 1.48 MG/DL (0.60-1.10); MAGNESIUM 2.2 MG/DL (1.5-2.4); PHOSPHORUS 4.6 MG/DL (2.3-4.5); POTASSIUM 4.2 MMOL/L (3.5-5.1); SODIUM 132 MMOL/L (135-145); TOTAL CARBON DIOXIDE 29.3 MMOL/L (24-32); TOTAL PROTEIN 6.5 G/DL (6.4-8.2); TRIGLYCERIDES 32 MG/DL (20-135); eGFR 45 ML/MIN
[2018-12-20 03:31] LABS: GLUCOSE 104 MG/DL (70-104)
[2018-12-20 03:51] LABS: PLATELET ESTIMATE NORMAL; TOTAL CELLS COUNTED 100
--- NOTE | 2018-12-20 06:24 | NUR ---
Problems reprioritized. Patient report given, questions answered & plan of care reviewed with Stan NASCIMENTO.
[2018-12-20] MEDS: magnesium hydroxide 30ml (MOM) UD suspension PEG SCH (06:44)
[2018-12-20] MEDS: pantoprazole 40 MG vial IV SCH (08:30)
[2018-12-20] MEDS: carVEDilol 3.125mg tablet PEG SCH ×2 (08:30→19:53)
[2018-12-20] MEDS: heparin, porcine 5000 units/ml vial SQ SCH ×2 (08:30→19:54)
[2018-12-20] MEDS: aspirin 81mg tab.chew PEG SCH (08:31)
[2018-12-20] MEDS: lactobacillus rhamnosus 10,000 MMU CELLS/CAPSULE OGT SCH ×2 (08:31→19:54)
[2018-12-20] MEDS: amiodarone 200mg tablet PEG SCH (08:31)
[2018-12-20] MEDS: levoTHYROXINE 75mcg tablet PEG SCH (08:32)
[2018-12-20] MEDS: ESCITALOPRAM OXALATE 5 MG TABLET PEG SCH (08:33)
--- NOTE | 2018-12-20 11:50 | NUR ---
F/u: Pt tolerating PEG feeds at 60ml/hr advancing to goal. TPN currently halved and to be off today per MD. Rectal tube in place given increased stooling since EN per RN. Expected given length of time no EN and constipation 17 days prior to first true BM likely still resolving. Addendum: 12/20/18 at [address] Amended: Links added.
[2018-12-20] MEDS: ceFAZolin 1GM/D5W- ADD-VANTAGE 50 ML IV SCH (15:31)
--- NOTE | 2018-12-20 18:30 | NUR ---
Patient in room CICU 2009. I have received report from Stan NASCIMENTO and had the opportunity to ask questions and assume patient care. Patient resting in bed, talking to himself and mildly restless. Vitals stable. Will continue to monitor patient.
--- NOTE | 2018-12-20 18:34 | NUR ---
Problems reprioritized. Patient report given, questions answered & plan of care reviewed with Shama NASCIMENTO.
[2018-12-20] MEDS: ROPINIRole 0.25mg tablet PEG SCH (19:53)
[2018-12-20] MEDS ORDERED: morphine 4 MG/ML inj SYRINge IV PRN (20:30)
[2018-12-20] MEDS: morphine 2 MG/ML inj. syringe IV PRN (20:35)
[2018-12-20] MEDS: insulin glargine (Lantus) pen - multi-dose SQ SCH (21:00)
[2018-12-20] MEDS ORDERED: LIDOcaine 2% 10ml TOPICAL JELLY (Urojet) MM ONE (21:50)
--- NOTE | 2018-12-20 21:54 | NUR ---
Patient had incontinent spontaneous void. Bladder scanner revealed 410 ccs after void. Patient unable to void after encouragement to void in urinal. Will replace corea catheter per miscellaneous nursing order with urojet for patient comfort. Addendum: 12/20/18 at 2238 by Shama Moss RN Temperature FC placed without difficulty. Patient expressing need to void, but unable to prior to FC insertion. Urojet used per MD orders, patient tolerated procedure well. Mild serosanguineous drainage noted from urethra after insertion. 425 CC's out.
[2018-12-21] VITALS (21 sets, daily range): BP systolic 68–152; BP diastolic 28–65
[2018-12-21] MEDS: ceFAZolin 1GM/D5W- ADD-VANTAGE 50 ML IV SCH ×3 (00:09→16:08)
[2018-12-21] MEDS: ipratropium/albuterol 3ml nebule NEB SCH ×3 (03:14→15:27)
[2018-12-21 04:57] LABS: BASOPHILS # (AUTO) 0.1 X10'3 (0-0.2); BASOPHILS % (AUTO) 0.5 % (0-1); EOSINOPHILS # (AUTO) 0.2 X10'3 (0-0.9); EOSINOPHILS % (AUTO) 1.7 % (0-6); HEMOGLOBIN 9.1 g/dl (14.0-17.9); LYMPHOCYTES # (AUTO) 1.2 X10'3 (1.1-4.8); LYMPHOCYTES % (AUTO) 8.3 % (21-51); MEAN CORPUSCULAR HEMOGLOBIN 30.8 PG (27.0-31.0); MEAN CORPUSCULAR HGB CONC 33.9 g/dL (33.0-36.5); MEAN PLATELET VOLUME 7.8 FL (7.4-10.4); MONOCYTES # (AUTO) 1.5 X10'3 (0-0.9); MONOCYTES % (AUTO) 10.6 % (2-12); NEUTROPHILS # (AUTO) 11.3 X10'3 (1.8-7.7); NEUTROPHILS % (AUTO) 78.9 % (42-75); PLATELET COUNT 262 X10'3 (140-440); RED BLOOD COUNT 2.97 X10'6 (4.70-6.10); RED CELL DISTRIBUTION WIDTH 15.6 % (11.5-14.5); WHITE BLOOD COUNT 14.4 X10'3 (4.5-11.0)
[2018-12-21 05:01] LABS: PARTIAL THROMBOPLASTIN TIME 29 SECONDS (22-32)
[2018-12-21 05:11] LABS: ALANINE AMINOTRANSFERASE 113 U/L (12-78); ALBUMIN 2.3 G/DL (3.4-5.0); ALBUMIN/GLOBULIN RATIO 0.5 (1.1-1.5); ALKALINE PHOSPHATASE 252 IU/L (46-116); ANION GAP 8 (8-16); ASPARTATE AMINO TRANSFERASE 95 U/L (10-37); BILIRUBIN,TOTAL 0.4 MG/DL (0.1-1.0); BLOOD UREA NITROGEN 61 MG/DL (7-18); BUN/CREATININE RATIO 40.1 (5.4-32.0); CALCIUM 8.3 MG/DL (8.5-10.1); CHLORIDE 101 MMOL/L (99-107); CREATININE 1.52 MG/DL (0.60-1.10); PHOSPHORUS 3.9 MG/DL (2.3-4.5); PREALBUMIN 18.5 MG/DL (19-36); SODIUM 136 MMOL/L (135-145); TOTAL CARBON DIOXIDE 27.1 MMOL/L (24-32); TRIGLYCERIDES 56 MG/DL (20-135); eGFR 43 ML/MIN
[2018-12-21 05:12] LABS: GLUCOSE 102 MG/DL (70-104)
--- NOTE | 2018-12-21 06:15 | NUR ---
Patient in room CICU 2009. I have received report from shift supervisor rn and had the opportunity to ask questions and assume patient care.
--- NOTE | 2018-12-21 06:19 | NUR ---
Problems reprioritized. Patient report given, questions answered & plan of care reviewed with Genoveva NASCIMENTO.
[2018-12-21] MEDS: lactobacillus rhamnosus 10,000 MMU CELLS/CAPSULE OGT SCH (08:03)
[2018-12-21] MEDS: heparin, porcine 5000 units/ml vial SQ SCH (08:03)
[2018-12-21] MEDS: amiodarone 200mg tablet PEG SCH (08:03)
[2018-12-21] MEDS: pantoprazole 40 MG vial IV SCH (08:03)
[2018-12-21] MEDS: aspirin 81mg tab.chew PEG SCH (08:04)
[2018-12-21] MEDS: levoTHYROXINE 75mcg tablet PEG SCH (08:04)
[2018-12-21] MEDS: ESCITALOPRAM OXALATE 5 MG TABLET PEG SCH (08:04)
[2018-12-21] MEDS: carVEDilol 3.125mg tablet PEG SCH (08:04)
[2018-12-21] MEDS ORDERED: CEFA1VIA10 IV (10:39)
[2018-12-21] MEDS ORDERED: LEVO75TA7 PEG (10:39)
[2018-12-21] MEDS ORDERED: IPRA3AMP9 NEB ×2 (10:39)
[2018-12-21] MEDS ORDERED: HEPA500017 SQ (10:39)
[2018-12-21] MEDS: morphine 2 MG/ML inj. syringe IV PRN (16:08)
[2018-12-21] MEDS: acetaminophen 325mg/10.15ml oral unit dose solution PEG PRN (16:39)
--- NOTE | 2018-12-21 18:15 | NUR ---
Problems reprioritized. Patient report given, questions answered & plan of care reviewed with oncomingl shift.
--- NOTE | 2018-12-21 18:41 | NUR ---
ASSUMED CARE FROM ELISEO NASCIMENTO NO QUESTIONS OR CONCERNS AFTER ASSUMING CARE
--- NOTE | 2018-12-21 18:50 | NUR ---
call;ed report to Johanna Pena RN assuming care for patient no questions or concerns after report
--- NOTE | 2018-12-21 19:28 | NUR ---
called [facility] dispatch #[phone] checked status of ambulance transport, dispatch stated calls are high and that they would call [facility] when in route, patients and daughter are currently at bedside conversing with patient rr even un labored no [id number] s/s of acute stress at this time
--- NOTE | 2018-12-21 20:10 | NUR ---
cookie picked up patient called family at [phone] "lois." let them know he has been transported
== END 2018-12-21 21:00 | DRG 268 ==
LOC: ER 15:33 → ICU 2S 22:03 → CICU 2S 12-13 19:23
PROVIDERS: ADMIT Surgery; ATTEND Internal Medicine Critical Care Medicine
PROC: 04100J8 Bypass Abdominal Aorta to Bilateral Common Iliac Arteries with Synthetic Substitute, Open Approach (ICD-10-PCS; 2018-12-02)
PROC: 30233N1 Transfusion of Nonautologous Red Blood Cells into Peripheral Vein, Percutaneous Approach (ICD-10-PCS; 2018-12-02)
PROC: BW211ZZ Computerized Tomography (CT Scan) of Abdomen and Pelvis using Low Osmolar Contrast (ICD-10-PCS; 2018-12-02)
PROC: 04U00JZ Supplement Abdominal Aorta with Synthetic Substitute, Open Approach (ICD-10-PCS; 2018-12-02)
PROC: 04C00ZZ Extirpation of Matter from Abdominal Aorta, Open Approach (ICD-10-PCS; principal; 2018-12-02 21:01)
PROC: 5A1945Z Respiratory Ventilation, 24-96 Consecutive Hours (ICD-10-PCS; 2018-12-03)
PROC: 0BH17EZ Insertion of Endotracheal Airway into Trachea, Via Natural or Artificial Opening (ICD-10-PCS; 2018-12-03)
PROC: 30233K1 Transfusion of Nonautologous Frozen Plasma into Peripheral Vein, Percutaneous Approach (ICD-10-PCS; 2018-12-03)
PROC: 30233R1 Transfusion of Nonautologous Platelets into Peripheral Vein, Percutaneous Approach (ICD-10-PCS; 2018-12-03)
PROC: 4A023N6 Measurement of Cardiac Sampling and Pressure, Right Heart, Percutaneous Approach (ICD-10-PCS; 2018-12-04)
PROC: 0BC18ZZ Extirpation of Matter from Trachea, Via Natural or Artificial Opening Endoscopic (ICD-10-PCS; 2018-12-04)
PROC: 0B21XFZ Change Tracheostomy Device in Trachea, External Approach (ICD-10-PCS; 2018-12-04)
PROC: 5A09357 Assistance with Respiratory Ventilation, Less than 24 Consecutive Hours, Continuous Positive Airway Pressure (ICD-10-PCS; 2018-12-11)
PROC: 02HV33Z Insertion of Infusion Device into Superior Vena Cava, Percutaneous Approach (ICD-10-PCS; 2018-12-11)
PROC: B548ZZA Ultrasonography of Superior Vena Cava, Guidance (ICD-10-PCS; 2018-12-11)
PROC: 5A09457 Assistance with Respiratory Ventilation, 24-96 Consecutive Hours, Continuous Positive Airway Pressure (ICD-10-PCS; 2018-12-12)
PROC: 0DH63UZ Insertion of Feeding Device into Stomach, Percutaneous Approach (ICD-10-PCS; 2018-12-19)
DX: I71.3 Abdominal aortic aneurysm, ruptured (principal); J96.00 Acute respiratory failure, unspecified whether with hypoxia or hypercapnia; A41.9 Sepsis, unspecified organism; I13.0 Hypertensive heart and chronic kidney disease with heart failure and stage 1 through stage 4 chronic kidney disease, or unspecified chronic kidney disease; N13.1 Hydronephrosis with ureteral stricture, not elsewhere classified; N18.4 Chronic kidney disease, stage 4 (severe); E87.1 Hypo-osmolality and hyponatremia; I70.0 Atherosclerosis of aorta; R13.13 Dysphagia, pharyngeal phase; I50.9 Heart failure, unspecified; E03.9 Hypothyroidism, unspecified; F32.9 Major depressive disorder, single episode, unspecified; E78.5 Hyperlipidemia, unspecified; G25.81 Restless legs syndrome; I25.10 Atherosclerotic heart disease of native coronary artery without angina pectoris; I73.9 Peripheral vascular disease, unspecified; K21.9 Gastro-esophageal reflux disease without esophagitis; Z87.441 Personal history of nephrotic syndrome; Z87.891 Personal history of nicotine dependence; Z90.49 Acquired absence of other specified parts of digestive tract; Z95.0 Presence of cardiac pacemaker; Z95.1 Presence of aortocoronary bypass graft; Z88.8 Allergy status to other drugs, medicaments and biological substances; Z79.899 Other long term (current) drug therapy; Z79.82 Long term (current) use of aspirin
CPT/HCPCS: 31645; 36415; 36569; 36600; 43246; 71045; 74176; 74177; 76937; 80047; 80053; 80069; 80202; 81003; 82570; 82803; 82948; 83036; 83540; 83550; 83605; 83735; 83880; 83935; 84100; 84132; 84134; 84145; 84300; 84443; 84478; 84560; 85018; 85025; 85379; 85384; 85610; 85730; 86592; 86885; 86900; 86901; 86920; 87040; 87070; 87075; 87077; 87081; 87088; 87186; 88300; 92508; 92616; 93005; 93306; 94002; 94003; 94640; 94660; 94667; 94668; 94760; 96361; 96374; 97110; 97116; 97161; 97530; 97535; 99152; 99153; 99285; A4618; A6258; A7000; B4087; C1751; C1758; C9113; G0378; J0171; J0360; J0690; J0692; J1170; J1265; J1644; J1815; J1940; J2001; J2212; J2250; J2270; J2370; J2405; J2543; J2704; J2765; J3010; J3370; J3475; J3480; J3490; J7030; J7040; J7042; J7050; J7060; J7120; L8670; P9016; P9035; P9047; P9059; Q9967